=== PATIENT | female | born 1950 | race Caucasian/White ===

== ENCOUNTER 2019-10-11 08:48 | Outpatient (CLI) | payer MEDICARE, SELFPAY ==
--- NOTE | ~2019-10-11 | US_ITS ---
EXAMINATION: US carotid duplex BI DATE: 10/11/2019 09:48 INDICATION: Dizziness and giddiness. TECHNIQUE: Grayscale, color Doppler, and pulsed Doppler images of the cervical carotid arteries were obtained. The degree of vessel stenosis is placed in one of the following categories: normal, <50%, 5 0-69%, >=70% but less than near-occlusion, near-occlusion, or total occlusion. Note that percent sten osis relative to normal distal artery lumen diameter is indirectly measured from velocity measurement s as described by Anthony, et al. Radiology 2003; [id number]:[id number]. COMPARISON: None. FINDINGS: RIGHT: The right common carotid artery (CCA) peak systolic velocity (PSV) is 86 cm/s. The right internal car otid artery (ICA) PSV is 79 cm/s. The right ICA end-diastolic velocity (EDV) is 24 cm/s. The right IC A/CCA PSV ratio is 1.5. Grayscale and color Doppler images yield an estimate of <50% diameter reducti on from plaque in the ICA. There is antegrade flow in the right vertebral artery. LEFT: The left CCA PSV is 81 cm/s. The left ICA PSV is 108 cm/s. The left ICA EDV is 35 cm/s. The left ICA/ CCA PSV ratio is 1.3. Grayscale and color Doppler images yield an estimate of <50% diameter reduction from plaque in the ICA. There is antegrade flow in the left vertebral artery. IMPRESSION: 1. <50% stenosis in the right internal carotid artery. 2. <50% stenosis in the left internal carotid artery. Reviewed, dictated and finalized at location A.
--- NOTE | ~2019-10-11 | MR_ITS ---
EXAMINATION: MR brain/brain stem wo/w con DATE: 10/11/2019 10:14 INDICATION: Dizziness and giddiness. TECHNIQUE: Magnetic resonance imaging (MRI) of the brain and brainstem was performed without and with 12 mL MultiHance intravenous contrast. Sequences included sagittal and axial T1-weighted FSE, axial diffusion-weighted FS EPI, axial T2*-weighted GRE, axial T2-weighted FLAIR Propeller, and axial T2-we ighted Propeller. Postcontrast sequences included axial and coronal T1-weighted FSE. Apparent diffusi on coefficient (ADC) maps were created. COMPARISON: None. FINDINGS: There are scattered areas of nonspecific increased T2-weighted signal intensity in the cere bral white matter, which is within normal limits for the patient's age. There is no intracranial hemo rrhage, acute infarction, or abnormal intracranial mass lesion. The ventricles are normal in size. Th ere is mild mucosal thickening in the ethmoid sinuses. The orbits are normal. There is a trace right mastoid effusion. IMPRESSION: 1. Normal aging brain. Reviewed, dictated and finalized at location A. IMPRESSION: 1. Normal aging brain.
[2019-10-11 09:43] LABS: Estimated Glomerular Filt Rate > 60
== END 2019-10-11 08:49 | disposition home or self-care (01) ==
PROVIDERS: PCP Family Medicine; Visit Provider Family Medicine
DX: E78.5 Hyperlipidemia, unspecified (principal); H53.9 Unspecified visual disturbance; I10 Essential (primary) hypertension; R42 Dizziness and giddiness; I65.23 Occlusion and stenosis of bilateral carotid arteries
CPT/HCPCS: 36415; 70553; 93880; A9577

== ENCOUNTER 2019-11-15 07:41 | Outpatient (CLI) | payer MEDICARE, SELFPAY ==
--- NOTE | ~2019-11-15 | XR_ITS ---
XR shoulder RT min 2V DATE: 11/15/2019 08:07 INDICATION: Chronic right shoulder pain TECHNIQUE: 2 views COMPARISON: None FINDINGS: Osteopenia. No fracture or dislocation, periosteal reaction or bone destruction or abnormal soft tissue calcification. Normal alignment at the acromioclavicular and glenohumeral joints. There is mild degenerative spurring at the acromioclavicular joint. IMPRESSION: Mild degenerative change at the acromioclavicular joint Osteopenia. Reviewed, dictated and finalized at location A.
== END 2019-11-15 07:42 | disposition home or self-care (01) ==
PROVIDERS: PCP Family Medicine
DX: M19.011 Primary osteoarthritis, right shoulder (principal); M85.811 Other specified disorders of bone density and structure, right shoulder
CPT/HCPCS: 73030

== ENCOUNTER 2019-12-15 15:34 | Outpatient (CLI) | payer MEDICARE, SELFPAY ==
--- NOTE | ~2019-12-15 | MR_ITS ---
EXAMINATION: MR lumbar spine wo/w con EXAM DATE: 12/15/2019 17:10 INDICATION: Dorsalgia. Low back pain. TECHNIQUE: Multi-sequential, multiplanar MR images of the lumbar spine were obtained without contrast . Sagittal T1, T2, T2 fat saturation images. Axial T2 weighted images. Axial T1 weighted sequence. Patient was then injected with 12 mL Multihance intravenous contrast and reimaged. Postcontrast axi al and sagittal T1-weighted fat saturation sequences were obtained. Notation was made that the IV inf iltrated during the injection. Only minimal contrast was present on postcontrast sequences. Patient d eclined repeat IV placement, injection. Comparison is made to prior examination from 10/16/2018. FINDINGS: There is moderate loss of the disc height at L4-5, mild disc disease at L3-4. Small Schmorl 's nodes at L1-2. The conus medullaris terminates at the T12/L1 level and has normal signal intensity and morphology. There are no suspicious marrow signal abnormalities. The vertebral bodies are align ed in the AP dimension. Paraspinal soft tissue is unremarkable. Postcontrast sequences are limited bu t axial postcontrast images does demonstrate some contrast in the kidneys, renal collecting system, n o evidence of epidural abscess or discitis. Level by level evaluation: Axial T2-weighted sequence limited from patient motion. T12-L1: Disc does not extend beyond the endplate margin. Facet arthropathy: None. Neural foraminal stenosis: No stenosis. Central canal stenosis: No stenosis. L1-L2: There is a minimal diffuse disc bulge. Facet arthropathy: Mild. Neural foraminal stenosis: No stenosis. Central canal stenosis: No stenosis. L2-L3: There is a mild diffuse disc bulge. Facet arthropathy: Mild to moderate. Neural foraminal stenosis: No stenosis. Central canal stenosis: No stenosis. L3-L4: There is a mild to moderate diffuse disc bulge. Facet arthropathy: Mild to moderate. Neural foraminal stenosis: Mild bilateral. Central canal stenosis: Mild. L4-L5: There is a moderate diffuse disc bulge. Facet arthropathy: Mild to moderate. Neural foraminal stenosis: Moderate bilateral. Central canal stenosis: Mild to moderate. L5-S1: Disc does not extend beyond the endplate margin. Facet arthropathy: Mild to moderate. Neural foraminal stenosis: No stenosis. Central canal stenosis: No stenosis. Difficult to appreciate any significant interval change compared to prior study 2019. IMPRESSION: 1. Some limitations from motion and limited postcontrast sequences. 2. L4-5 moderate loss of disc height and bilateral neural foraminal stenosis. 3. Lesser spondylosis at other levels. Reviewed, dictated and finalized at location A.
[2019-12-15 16:17] LABS: Estimated Glomerular Filt Rate > 60
== END 2019-12-15 15:35 | disposition home or self-care (01) ==
LOC: ANHIMG 15:36
PROVIDERS: PCP Family Medicine; Visit Provider Family Medicine
DX: M54.9 Dorsalgia, unspecified (principal)
CPT/HCPCS: 72158; A9577

== ENCOUNTER → 2020-07-05 08:36 | Outpatient (CLI) | payer MEDICARE, SELFPAY ==
--- NOTE | ~2020-07-05 | XR_ITS ---
EXAMINATION: XR lumbar spine 2-3V DATE: 07/05/2020 09:06 INDICATION: Low back pain TECHNIQUE: Anteroposterior and lateral views of the lumbar spine, and cone-down lateral view of the l umbosacral junction were obtained. COMPARISON: MRI, 12/15/2019 FINDINGS: There is no fracture. Bone alignment is normal. There is unchanged moderate loss of interve rtebral disc space height at L4-5. The vertebral body heights are normal. Small degenerative osteophy ji project from the anterior endplates of multiple vertebral bodies. There is mild to moderate facet osteoarthritis of the lower lumbar spine. IMPRESSION: 1. Mild lumbar spondylosis without acute findings or significant interval change. Reviewed, dictated and finalized at location A. IMPRESSION: 1. Mild lumbar spondylosis without acute findings or significant interval ortega mireya
--- NOTE | ~2020-07-05 | XR_ITS ---
XR hip RT min 3V w AP pelvis 07/05/2020 09:06 Indication: Right hip pain Procedure: 3 views right hip Comparison: No prior studies for comparison. Findings: No fracture, subluxation or dislocation. No significant joint space narrowing. Pelvic rings are intact. Sacral foramen are symmetric. No significant soft tissue abnormality. No foreign bodies. Impression: 1: No significant bone or joint abnormality. Reviewed, dictated and finalized at location B. Impression: 1: No significant bone or joint abnormality.
== END ==
PROVIDERS: PCP Family Medicine; Visit Provider Physician Assistant
DX: M47.816 Spondylosis without myelopathy or radiculopathy, lumbar region (principal); M25.551 Pain in right hip
CPT/HCPCS: 72100; 73502

== ENCOUNTER 2020-10-08 08:27 | Emergency (ER) | payer MEDICARE, SELFPAY ==
[2020-10-08] VITALS (8 sets, daily range): BP systolic 109–143; BP diastolic 81–90; PULSE 56–65; RESP 12–18; TEMP 36.7; O2SAT 96–100
--- NOTE | ~2020-10-08 | XR_ITS ---
EXAMINATION: XR femur RT min 2V INDICATION: Right thigh pain TECHNIQUE: Two views of the right femur are obtained on five radiographs. COMPARISON: None available FINDINGS: Bone alignment is normal. There is no fracture. Calcified atherosclerosis is noted. There i s mild osteoarthritis of the knee. IMPRESSION: 1. No acute osseous abnormality. Reviewed, dictated and finalized at location A.
--- NOTE | ~2020-10-08 | XR_ITS ---
EXAMINATION: XR pelvis 1-2V INDICATION: Pelvic pain TECHNIQUE: AP view of the pelvis is obtained. COMPARISON: 07/05/2020 FINDINGS: Bone alignment is normal. There is no fracture. Mild lumbar spondylosis is noted. The soft tissues are unremarkable. IMPRESSION: 1. No acute osseous abnormality. Reviewed, dictated and finalized at location A.
--- NOTE | 2020-10-08 08:45 | ED.FALL ---
HPI - Fall General Chief Complaint: Fall Stated Complaint: fall Time Seen by Provider: 10/08/20 08:42 Source: patient Mode of arrival: ambulatory Limitations: no limitations History of Present Illness HPI Narrative: Patient is a 70-year-old female complaining of right thigh pain, 10 out of 10, aching, worse with palpation movement, started prior to arrival after she fell down 3 flights of stairs while sweeping. Patient denies any head, neck, back, chest, abdomen, pelvis or any other extremity pain/injury. Denies any LOC. Related Data Allergies Allergy/AdvReac Type Severity Reaction Status Date / Time erythromycin base Allergy Mild NAUSEA Verified 07/03/20 15:36 lisinopril Allergy Unknown cough Verified 07/03/20 15:36 trazodone Allergy Unknown nasal Verified 07/03/20 15:36 stuffiness, Review of Systems Review of Systems: All systems reviewed & are unremarkable except as noted in HPI and below Constitutional: Constitutional: Denies body ache(s), Denies chills, Denies excessive sweating, Denies fatigue, Denies fever(s), Denies headache(s), Denies lethargy, Denies malaise, Denies weakness and Denies weight loss Eyes: Eyes: Denies blurry vision, Denies change in vision and Denies loss of vision ENT: Denies dizziness, Denies ear discharge, Denies headache(s), Denies lip swelling, Denies epistaxis, Denies nasal congestion, Denies neck pain, Denies throat swelling and Denies tongue swelling Cardiovascular: Cardiovascular: Denies chest pain, Denies chest pain at rest, Denies chest pain with activity, Denies diaphoresis, Denies rapid heart rate, Denies edema, Denies irregular heart rhythm, Denies lightheadedness, Denies palpitations, Denies dyspnea and Denies dyspnea on exertion Respiratory: Respiratory: Denies chest congestion, Denies cough, Denies hemoptysis, Denies dyspnea and Denies dyspnea on exertion Gastrointestinal: Gastrointestinal: Denies abdominal pain, Denies melena, Denies hematochezia, Denies diarrhea, Denies nausea, Denies vomiting and Denies hematemesis Musculoskeletal: Musculoskeletal: Denies deformity, Denies joint swelling, Denies neck pain and Denies numbness Neurologic: Denies Abnormal speech present, Denies abnormal gait, Denies confusion, Denies dizziness, Denies headache(s), Denies focal weakness, Denies loss of vision, Denies numbness, Denies Other visual disturbances, Denies Sensory deficit (Neuro) and Denies weakness Psychiatric: Psychiatric: Denies confusion, Denies depression, Denies auditory hallucinations, Denies homicidal ideation and Denies suicidal ideation Endocrine: Endocrine: Denies cold intolerance, Denies excessive sweating, Denies fatigue, Denies heat intolerance and Denies palpitations Hematologic/Lymphatic: Hematologic/Lymphatic: Denies easy bleeding and Denies easy bruising Allergic/Immunologic: Allergic/Immunologic: Denies lip swelling, Denies throat swelling and Denies tongue swelling PMFSH Family History Family History Mother Family history of anemia Family history of chronic obstructive pulmonary disease Father Cerebrovascular accident Family history of chronic obstructive pulmonary disease Social History Social History Smoking status: Current every day smoker Alcohol intake: current Exam Const: General: cooperative, healthy appearing, comfortable, no acute distress, well developed, alert and awake; No confusion Orientation/consciousness: oriented to person, oriented to place, oriented to time, patient oriented x3 and No confusion Limitations: no limitations HENMT: Head: normal to inspection, normocephalic and atraumatic Ears: hearing grossly normal bilaterally, TM normal on the right and TM normal on the left General nose exam: Normal external nose present, Normal nares present and No nasal discharge present Face and sinus: normal facial
[2020-10-08] MEDS: KETOROLAC 30 MG/ML VIAL (*BKC) IV PUSH (09:22)
[2020-10-08] MEDS: diazePAM (*CRX) 5 MG TABLET PO (09:23)
[2020-10-08] MEDS: HYDROmorphone HCL INJ (*CRX) 1 MG/ML SYR 0.5 MG IV PUSH (09:23)
[2020-10-08] MEDS: ONDANSETRON INJ 4 MG/2 ML VIAL IV PUSH (09:23)
== END 2020-10-08 09:57 | disposition home or self-care (01) ==
PROVIDERS: Emergency Provider Emergency Medicine; PCP Family Medicine
DX: S70.01XA Contusion of right hip, initial encounter (principal); W10.9XXA Fall (on) (from) unspecified stairs and steps, initial encounter; F17.210 Nicotine dependence, cigarettes, uncomplicated
CPT/HCPCS: 72170; 73552; 96374; 96375; 99284; A9270; J1170; J1885; J2405

== ENCOUNTER → 2020-11-03 08:03 | Outpatient (CLI) | payer MEDICARE, SELFPAY ==
[2020-11-03 18:53] LABS: SARS-CoV-2 RNA PCR Negative
== END ==
PROVIDERS: PCP Family Medicine; Visit Provider Physician Assistant
DX: R68.89 Other general symptoms and signs (principal); Z20.822 Contact with and (suspected) exposure to COVID-19
CPT/HCPCS: C9803; U0003; U0005

== ENCOUNTER → 2021-02-26 07:03 | Outpatient (CLI) | payer MEDICARE, SELFPAY ==
--- NOTE | ~2021-02-26 | MR_ITS ---
EXAMINATION: MR shoulder RT wo con DATE: 02/26/2021 08:30 INDICATION: Unspecified rotator cuff tear or rupture of shoulder. Right shoulder pain. TECHNIQUE: Magnetic resonance imaging (MRI) of the right shoulder was performed without intravenous c ontrast. Sequences included axial PD-weighted FS FSE, coronal oblique PD-weighted FS FSE and T2-weigh juan jose FS FSE, and sagittal oblique T2-weighted FS FSE and T1-weighted FSE. COMPARISON: Right shoulder radiographs 11/15/2019 FINDINGS: Coracoacromial arch: There are changes of acromioplasty and likely distal clavicle resection. There is full-thickness cart ilage loss of the acromion and distal clavicle. There is an acromioclavicular joint effusion. There i s severe subacromial/subdeltoid bursitis. Rotator cuff: There are surgical changes of the rotator cuff. There is bone marrow edema in greater tuberosity. The re is severe supraspinatus and infraspinatus tendinopathy. There is a full-thickness tear of supraspi natus tendon measuring 7 mm anterior to posterior by 20 mm proximal to distal. Teres minor tendon is normal. There is moderate subscapularis tendinopathy. There is no asymmetric fatty atrophy of the rot ator cuff muscle bellies. Biceps tendon and glenoid labrum: There is a complete tear of proximal biceps tendon with torn tendon in the bicipital groove. There is degenerative tearing of the glenoid labrum (SLAP tear). Fluid: There is a large glenohumeral joint effusion. Bones/cartilage: There is cartilage surface irregularity of glenoid. Humeral cartilage is normal. IMPRESSION: 1. Severe rotator cuff tendinopathy and full-thickness rotator cuff tear. Surgical changes of the rot ator cuff. 2. Mild glenoid chondrosis. 3. Complete tear of proximal biceps tendon. 4. Large glenohumeral joint effusion and severe subacromial/subdeltoid bursitis. Reviewed, dictated and finalized at location B. UL[employer]WYER [employer]ONE IMPRESSION: 1. Severe rotator cuff tendinopathy and full-thickness rotator cuff tear. Surgi tee changes of the rotator cuff. 2. Mild glenoid chondrosis. 3. Complete tear of proximal biceps tendon. 4. Large glenohumeral joint effusion and severe subacromial/subdeltoid bursitis .
== END ==
PROVIDERS: PCP Family Medicine; Visit Provider Specialist
DX: M75.102 Unspecified rotator cuff tear or rupture of left shoulder, not specified as traumatic (principal); S46.211D Strain of muscle, fascia and tendon of other parts of biceps, right arm, subsequent encounter; X58.XXXD Exposure to other specified factors, subsequent encounter; M25.411 Effusion, right shoulder; M75.51 Bursitis of right shoulder
CPT/HCPCS: 73221

== ENCOUNTER → 2021-02-26 07:05 | Outpatient (CLI) | payer MEDICARE, SELFPAY ==
--- NOTE | ~2021-02-26 | CT_ITS ---
EXAMINATION:CT lung screening DATE: 02/26/2021 07:36 INDICATION: Personal history of nicotine dependence. Smoker who quit 10 years ago with 35 pack year h istory. TECHNIQUE: Computed tomography (CT) of the chest was performed without intravenous contrast. Automate d exposure control and iterative reconstruction technique were employed. The dose-length product (DLP ) was 62.69 mGy-cm. COMPARISON: Chest CT 12/19/2014 FINDINGS: There is mild emphysema. There is mild atelectasis bilaterally. No pleural effusion. The he art size is normal. There are coronary artery calcifications. No pericardial effusion. There are bila teral breast implants. There is mild thoracic spondylosis. IMPRESSION: 1. Lung-RADS category 1: Negative. Continue annual screening with noncontrast low-dose chest CT in 12 months. Reviewed, dictated and finalized at location B. 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 Lung-RADS category 1: Negative. Continue annual screening with noncontrast l ow-dose chest CT in 12 months.
== END ==
PROVIDERS: PCP Family Medicine; Visit Provider Family Medicine
DX: Z12.2 Encounter for screening for malignant neoplasm of respiratory organs (principal); Z87.891 Personal history of nicotine dependence
CPT/HCPCS: 71271

== ENCOUNTER → 2021-12-19 06:52 | Outpatient (CLI) | payer MEDICARE, SELFPAY ==
--- NOTE | ~2021-12-19 | MR_ITS ---
EXAMINATION: MR lumbar spine wo con DATE: 12/19/2021 07:26 INDICATION: Low back pain. TECHNIQUE: Magnetic resonance imaging (MRI) of the lumbar spine was performed without intravenous con trast. Sequences included sagittal T2-weighted FSE, sagittal T2-weighted FS FSE, sagittal T1-weighted FSE, and axial T2-weighted FSE. COMPARISON: Lumbar spine MRI 12/15/2019 FINDINGS: Bone alignment is normal. Vertebral body heights are normal. There is severely decreased di sc height at L4-L5 with endplate remodeling. The distal spinal cord signal intensity is normal. The c onus medullaris is at L1. The following disc levels are specifically discussed: L1-L2: The disc does not extend beyond the endplate margin. There is mild bilateral facet joint osteo arthritis. There is no neural foraminal stenosis. There is no central canal stenosis. L2-L3: The disc is bulging. There is severe right and mild left facet joint osteoarthritis. There is mild bilateral neural foraminal stenosis. There is mild central canal stenosis. L3-L4: The disc is bulging and has an annular fissure. There is mild bilateral facet joint osteoarthr itis. There is mild bilateral neural foraminal stenosis. There is mild central canal stenosis. L4-L5: The disc is bulging and has an annular fissure. There is mild bilateral facet joint osteoarthr itis. There is moderate bilateral neural foraminal stenosis. There is mild central canal stenosis. L5-S1: The disc does not extend beyond the endplate margin. There is severe right and moderate left f acet joint osteoarthritis. There is mild right neural foraminal stenosis. There is no central canal s tenosis. IMPRESSION: 1. Severe lumbar spondylosis, stable from 12/15/2019. Reviewed, dictated and finalized at location A.
== END ==
PROVIDERS: PCP Family Medicine; Visit Provider Nurse Practitioner Family
DX: M47.896 Other spondylosis, lumbar region (principal)
CPT/HCPCS: 72148

== ENCOUNTER 2022-07-13 13:45 | Emergency (ER) | payer MEDICARE, SELFPAY ==
--- NOTE | ~2022-07-13 | CT_ITS ---
EXAMINATION: CT lumbar spine wo con DATE: 07/13/2022 15:10 INDICATION: LBP, BLE shooting pains . TECHNIQUE: Computed tomography (CT) of the lumbar spine was performed without intravenous contrast. A utomated exposure control and iterative reconstruction technique were employed. The dose-length produ ct was 324.15 mGy-cm. COMPARISON: MR lumbar spine 12/19/2021, x-ray lumbar spine 07/05/2020. FINDINGS: Colonic diverticuli. Atherosclerotic calcifications. Partially visualized distended urinary bladder. 5 nonrib-bearing lumbar-type vertebral bodies. Pedicles intact. Normal vertebral body align ment. Vertebral body heights preserved. Multilevel lumbar degenerative disc disease, with severe narr owing and vacuum phenomenon at L4-5. Mild lumbar facet sclerosis and hypertrophy. No severe central c anal or neural foraminal narrowing. Mild central canal stenosis at L3-4 and L4-5. Mild neural foramin al narrowing bilaterally at L4-5 and on the right at L5-S1. Old right L2 and L3 transverse process fr actures. IMPRESSION: No acute fracture or traumatic malalignment in the lumbar spine. Severe degenerative disc disease at L4-5. Dilated urinary bladder, correlate for findings of urinary retention. Reviewed, dictated and finalized at location K. IMPRESSION: No acute fracture or traumatic malalignment in the lumbar spine. Severe degener ative disc disease at L4-5. Dilated urinary bladder, correlate for findings of urinary retention.
[2022-07-13 13:49] VITALS: PULSE 94; RESP 18; TEMP 36.7; O2SAT 98
--- NOTE | 2022-07-13 14:19 | ED.BACK ---
HPI - Back Pain/Injury General Chief Complaint: Back Pain/Injury <John Munson PA-C - Last Filed: 07/13/22 19:32> Stated Complaint: back pain after bending over to pick something up <John Munson PA-C - Last Filed: 07/13/22 19:32> Time Seen by Provider: 07/13/22 13:55 <BROOKE Alberts Last Filed: 07/13/22 19:32> Source: patient <BROOKE Alberts Last Filed: 07/13/22 19:32> Mode of arrival: ambulatory <BROOKE Alberts Last Filed: 07/13/22 19:32> Limitations: no limitations <John Munson PA-C - Last Filed: 07/13/22 19:32> History of Present Illness HPI Narrative: This is a 72-year-old female with acute on chronic back pain times today. 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 Patient states she was curled up in a ball due to the pain. Denies a fall. Denies any specific trauma to the back. Denies audible pops. Denies fevers or IV drug use. States she has known chronic degenerative problems in the low back. Reports 9 out of 10 pain. Denies saddle anesthesia, urinary retention, bowel incontinence. Denies further site of pain or injury. <John Munson PA-C - Last Filed: 07/13/22 19:32> Related Data Allergies/Adverse Reactions: Allergies Allergy/AdvReac Type Severity Reaction Status Date / Time lisinopril Allergy Unknown cough Verified 02/04/22 09:54 erythromycin base AdvReac Mild NAUSEA Verified 07/13/22 14:20 trazodone AdvReac Unknown nasal Verified 07/13/22 14:20 stuffiness, <BROOKE Alberts Last Filed: 07/13/22 19:32> Review of Systems Review of Systems: CONSTITUTIONAL: Denies fever, chills, or sweats. EYES: Denies visual changes, redness, or discharge. ENT: Denies rhinorrhea, congestion, sore throat, or otalgia. CARDIOVASCULAR: Denies chest pain, palpitations, or edema. RESPIRATORY: Denies cough or dyspnea. GASTROINTESTINAL: Denies abdominal pain, nausea, vomiting, or diarrhea. GENITOURINARY: Denies dysuria or hematuria. SKIN: Denies rash or itching. MUSCULOSKELETAL: Endorses low back pain. Denies other back pain, joint pain, or myalgia. NEUROLOGIC: Denies headache, numbness, dizziness, or weakness. PSYCHIATRIC: Denies anxiety or depression. <John Munson PA-C - Last Filed: 07/13/22 19:32> PMFSH Past Medical History Medical History: Medical History Accelerated hypertension Dizziness of unknown etiology Tired Visual changes <John Munson PA-C - Last Filed: 07/13/22 19:32> Family History Family History: Family History Mother Family history of anemia Family history of chronic obstructive pulmonary disease Father Cerebrovascular accident Family history of chronic obstructive pulmonary disease <John Munson PA-C - Last Filed: 07/13/22 19:32> Social History Social History: Social History Smoking status: Former smoker Alcohol intake: current <John Munson PA-C - Last Filed: 07/13/22 19:32> Exam Narrative: GENERAL: Well-appearing, well-nourished, and in no acute distress. HEAD: Normocephalic, atraumatic. EYES: PERRLA and EOMI. ENT: Nares clear, no rhinorrhea or epistaxis. Mucous membranes moist. Oropharynx without tonsillar hypertrophy exudate or other lesions. NECK: Supple. No adenopathy or masses. CHEST: No respiratory distress. Clear to auscultation. No wheezes rales or rhonchi HEART: Regular rate and rhythm. No murmur heard. Normal peripheral pulses. ABDOMEN: Soft, nontender, nondistended, normal active bowel sounds. EXTREMITIES: Midline lumbar spinal tenderness. Mild paraspinal lumbar tenderness bilaterally. No bony deformities or step-offs. The spine is otherwise without tenderness. MSK exam is otherwise
[2022-07-13] MEDS: predniSONE 20 MG TABLET 60 MG PO (14:39)
[2022-07-13] MEDS: ORPHENADRINE CITRATE 100 MG TABLET.ER PO (14:39)
[2022-07-13] MEDS: HYDROcodone/acetaminophen (*CRX) 7.5-325 MG TABLET 1 TAB PO (14:39)
[2022-07-13] MEDS: KETOROLAC (*BKC) 60 MG/2 ML VIAL IM (16:07)
--- NOTE | 2022-07-13 16:13 | PC.NURSE ---
Patient asked for urine specimen. Pt reports, I'm working on it .
--- NOTE | 2022-07-13 16:14 | PC.NURSE ---
Patient standing at bedside. Patient refusing to sit in stretcher.
--- NOTE | 2022-07-13 16:50 | PC.NURSE ---
Patient during discharge reports she is insulted that she is in so much pain because of her mechanism of injury, which was picking up her purse.
[2022-07-13 17:03] VITALS: BP 164/81; PULSE 70; RESP 16; O2SAT 100
== END 2022-07-13 17:05 | disposition home or self-care (01) ==
PROVIDERS: Emergency Provider Physician Assistant; PCP Emergency Medicine
DX: M47.816 Spondylosis without myelopathy or radiculopathy, lumbar region (principal); I10 Essential (primary) hypertension; G89.29 Other chronic pain
CPT/HCPCS: 72131; 96372; 99284; A9270; J1885; J7512

== ENCOUNTER → 2022-09-05 15:07 | Outpatient (CLI) | payer MEDICARE, SELFPAY ==
--- NOTE | ~2022-09-05 | XR_ITS ---
EXAMINATION: XR knee RT 3V DATE: 09/05/2022 15:23 INDICATION: Right knee pain. Fall. TECHNIQUE: 3 views of right knee were obtained. COMPARISON: Right femur radiographs 10/08/2020 FINDINGS: Bone alignment is normal. No fracture. There is mild tricompartmental osteoarthritis charac terized by tiny osteophytes. No joint space narrowing. No knee joint effusion. IMPRESSION: 1. Mild right knee osteoarthritis. Reviewed, dictated and finalized at location A.
--- NOTE | ~2022-09-05 | XR_ITS ---
EXAMINATION: XR hip RT min 3V w AP pelvis DATE: 09/05/2022 15:23 INDICATION: Right hip pain. Fall. TECHNIQUE: An anteroposterior view of the pelvis and 2 views of right hip were obtained. COMPARISON: Pelvis radiograph 10/08/2020 FINDINGS: Bone alignment is normal. No fracture. There is moderate lumbar spondylosis. There is mild osteoarthritis of the hips. IMPRESSION: 1. Mild osteoarthritis of the hips. Reviewed, dictated and finalized at location A.
== END ==
PROVIDERS: PCP Emergency Medicine; Visit Provider Physician Assistant
DX: M16.0 Bilateral primary osteoarthritis of hip (principal); M17.11 Unilateral primary osteoarthritis, right knee
CPT/HCPCS: 73502; 73562

== ENCOUNTER 2022-09-16 08:26 | Outpatient (CLI) | payer MEDICARE, SELFPAY ==
[2022-09-16 14:25] LABS: Basophils Percent Auto 0.6 % (0.2-1.2); Eosinophils Absolute Auto 0.1 K/mm3 (0-0.3); Eosinophils Percent Auto 1.6 % (0-4.4); Hemoglobin 13.6 g/dL (12.0-15.0); Immature Granulocyte Absolute 0.01 K/mm3 (0.00-0.031); Immature Granulocyte Percent A 0.2 % (0-0.5); Lymphocytes Absolute Auto 2.15 K/mm3 (0.9-3.2); Lymphocytes Percent Auto 34.2 % (18.3-44.2); Mean Corpuscular HGB Conc 31.6 g/dl (32-36); Mean Corpuscular Hemoglobin 30.4 pg (26-34); Mean Corpuscular Volume 96.2 fl (80-100); Mean Platelet Volume 9.5 fl (7.4-10.4); Monocytes Absolute Auto 0.5 K/mm3 (0.1-0.6); Monocytes Percent Auto 8.4 % (2.6-8.5); Neutrophils Absolute Auto 3.5 K/mm3 (1.3-6.7); Platelet Count Result 365 k/mm3 (150-375); Red Blood Count 4.47 M/mm3 (4.2-5.4); Red Cell Distribution Width 13.6 % (11.5-14.5); White Blood Count 6.3 K/mm3 (4.5-10.0)
[2022-09-16 14:43] LABS: Alanine Aminotransferase 26 U/L (6-35); Albumin Level 4.5 g/dL (3.5-5.1); Alkaline Phosphatase 83 U/L (38-126); Anion Gap 4 mmol/L (8-16); Aspartate Amino Transferase 31 U/L (14-36); Bilirubin,Total 0.4 mg/dL (0.2-1.3); Blood Urea Nitrogen 9 mg/dL (7-17); Calcium 9.5 mg/dL (8.4-10.2); Carbon Dioxide 34 mmol/L (22-30); Chloride 100 mmol/L (98-107); Cholesterol 230 mg/dL (0-200); Estimated Glomerular Filt Rate > 60; Glucose 80 mg/dL (65-110); HDL Direct 52 mg/dL; Sodium 138 mmol/L (137-145); Triglycerides 229 mg/dL (<150)
[2022-09-16 14:53] LABS: LDL Cholesterol Direct 126 mg/dL
[2022-09-16 15:08] LABS: Vitamin D 25 Hydroxy 31.6 ng/mL
[2022-09-16 15:22] LABS: Thyroid Stimulating Hormone Reflex 0.958 uIU/mL (0.465-4.68)
[2022-09-16 16:12] LABS: Hemoglobin A1C 5.9 % (<5.7)
== END 2022-09-16 08:27 | disposition home or self-care (01) ==
LOC: ANHGOSHLAB 08:27
PROVIDERS: PCP Emergency Medicine; Visit Provider Nurse Practitioner Family
DX: R79.89 Other specified abnormal findings of blood chemistry (principal); I10 Essential (primary) hypertension; R52 Pain, unspecified; E78.2 Mixed hyperlipidemia; E55.9 Vitamin D deficiency, unspecified; G47.00 Insomnia, unspecified; R06.83 Snoring
CPT/HCPCS: 36415; 80053; 80061; 82306; 83036; 84443; 85025

== ENCOUNTER 2022-09-23 09:24 | Outpatient (CLI) | payer MEDICARE, SELFPAY ==
--- NOTE | 2022-10-13 22:39 | WPDSLEEPSTUD ---
Sleep Study Date of Study: 09/23/22 Ordering Provider: Dewayne Walters MD Interpreting Physician: Kenna Vera MD Sleep Study Type: Split Polysomnogram Height: 1.65 m Weight: 61.235 kg Body Mass Index: 22.4 Neck Circumference (inches): 14.5 [place]: 5 Reason for Sleep Study Snoring, hypersomnia Sleep History Aleksandra Ferrer is a 72-year-old female with history of hypertension and tobacco use who presented for a sleep study to evalute snoring and daytime hypersomnia. She told her primary care provider that her mouth is parched upon waking. She rarely awakens from sleep short of breath. She rarely awakens at night with heartburn, belching or cough.? She constantly snores and she snores loudly enough that others complain. She never has trouble sleeping when she has a cold. She never suddenly wakes up gasping for breath during the night. She never has breathing problems at night observed by others. She occasionally sweats excessively at night. She occasionally notices her heart pounding or beating irregularly during the night. She never falls asleep during the day. She never falls asleep while driving. She never experiences loss of muscle tone with strong emotion. She constantly has trouble during the day because of sleepiness. She never feels paralyzed on waking or falling asleep. She never experiences vivid dreams upon waking or falling asleep. She does not feel afraid of going to sleep. She rarely has nightmares. She occasionally recalls her dreams. She constantly has thoughts racing through her mind. She does not feel sad or depressed. She frequently feels anxiety or worry about things. She rarely notices parts of her body jerk. She rarely kicks during the night. She never feels crawling or aching feelings in her legs. She never feels leg pain at night. She never grinds her teeth during sleep or has morning jaw pain. She occasionally feels bothered by pain during the day. She rarely wakes up feeling stiff in the morning and frequently wakes up feeling sore and achy in the morning. Normal bedtime is around 11:30pm on the weekdays and 11:30pm to 12:30am on the weekends, taking around 20 minutes to fall asleep. She takes Xanax before bed for sleep. She typically gets about 6 hours of sleep per night. Her wake up time is 5:30am on the weekdays and same on the weekends. She hardly ever wakes up during the night. She frequently reads before falling asleep and sometimes watches TV before falling asleep. Habits:? Current tobacco smoker. Drinks about 4 to 5 caffeinated beverages per day. Drinks about 3 to 4 alcoholic drinks per night. No recreational substances. [facility] Past Medical History Medical History (Updated 10/13/22 @ 22:47 by Kenna Vera MD) Accelerated hypertension Dizziness of unknown etiology Hypersomnia Tired Visual changes Family History Family History Mother Family history of anemia Family history of chronic obstructive pulmonary disease Father Cerebrovascular accident Family history of chronic obstructive pulmonary disease Social History Social History Smoking status: Former smoker Alcohol intake: current Lack of Transportation: No Lack of Food: Never True Current Housing: I Have Housing Concerned About Future Housing: No Difficulty Paying Gas/Electric Bills: No Difficulty Paying for Meds: No Currently Unemployed: No Education: Associate Degree Difficulty w/ Childcare or Family Care: No Medications Home Medications Medication Instructions Recorded Confirmed Type ibuprofen 800 mg tablet 800 mg PO TID #270 tabs 01/17/21 09/16/22 Rx cyclobenzaprine 10 mg tablet 10 mg PO TID PRN muscle spasm #30 08/22/21 09/16/22 Rx tabs ondansetron 4 mg disintegrating 4 mg PO Q8H PRN nausea and 02/04/22 09/16/22 Rx tablet vomiting #10 tabs atorvastatin 20 mg
[2022-10-14 11:11] VITALS: BMI 22.4
== END 2022-09-24 06:13 | disposition home or self-care (01) ==
LOC: ANHCSM 09:24
PROVIDERS: PCP Emergency Medicine; Visit Provider Family Medicine
DX: G47.33 Obstructive sleep apnea (adult) (pediatric) (principal); Z87.891 Personal history of nicotine dependence
CPT/HCPCS: 95811

== ENCOUNTER → 2023-01-29 08:46 | Outpatient (CLI) | payer MEDICARE, SELFPAY ==
--- NOTE | ~2023-01-29 | CT_ITS ---
EXAMINATION: CT lung screening DATE: 01/29/2023 08:59 INDICATION: Personal history of nicotine dependence TECHNIQUE: Computed tomography (CT) of the chest was performed without intravenous contrast. The dose -length product was 52.20 mGy-cm. Automated exposure control and iterative reconstruction technique w ere employed. COMPARISON: CT dated 02/26/2021 FINDINGS: No thoracic lymphadenopathy. Mild atherosclerosis. Heart size normal. No significant pleura l or pericardial effusion. Upper abdomen is unremarkable. There are bilateral breast implants. Mild e mphysema. No endobronchial lesions. No pneumothorax. No new pulmonary nodules or masses. No focal air space consolidation. IMPRESSION: 1. Lung-RADS category 1: Negative. Continue annual screening with noncontrast low-dose chest CT in 12 months. Reviewed, dictated and finalized at location B. IMPRESSION: 1. Lung-RADS category 1: Negative. Continue annual screening with noncontrast l ow-dose chest CT in 12 months.
== END ==
PROVIDERS: PCP Physician Assistant; Visit Provider Physician Assistant
DX: Z12.2 Encounter for screening for malignant neoplasm of respiratory organs (principal); Z87.891 Personal history of nicotine dependence
CPT/HCPCS: 71271

== ENCOUNTER 2023-09-15 08:24 | Emergency (ER) | payer MEDICARE, SELFPAY ==
--- NOTE | ~2023-09-15 | CT_ITS ---
CT cervical spine wo con Ordering provider: Eliot Jimenez MD History: . neck injury . Comparison: July 13, 2022 Technique: CT of the cervical spine was performed without contrast. Sagittal and coronal reformatted images were also obtained and reviewed. Radiation reduction technique utilized. FINDINGS: VERTEBRAE: No subluxation or acute fracture. The occipital condyles are intact. Cystic changes seen in the left side on the C5. DISC SPACES: Narrowing of the disc C6-C7. Facet joint disease at the level of C3-C4 and C4-C5. Narrow ing of the left intervertebral foramen at the level of C4-C5. PARASPINOUS SOFT TISSUES: Normal. IMPRESSION: No acute osseous abnormality cervical spine. Reviewed, dictated and finalized at location A.
[2023-09-15 08:28] VITALS: BP 170/95; PULSE 98; RESP 20; TEMP 36.8; O2SAT 97
[2023-09-15] MEDS: SODIUM CHLORIDE 0.9% IV 1,000 ML 999 ML IV CONT (09:38)
[2023-09-15] MEDS: KETOROLAC 15 MG/ML VIAL (*BKC) IV PUSH (09:39)
[2023-09-15] MEDS: diazePAM INJ (*CRX) 10 MG/2 ML SYRINGE 5 MG IV PUSH (09:39)
--- NOTE | 2023-09-15 09:49 | ED.GENADULT ---
HPI - General Adult General Chief complaint: Neck Pain/Injury Stated complaint: neck pain Time Seen by Provider: 09/15/23 08:52 History of Present Illness HPI narrative: Patient is a 73-year-old female who presents ER with neck pain. Worsening over last 2 weeks but markedly worsening in last 24 hours. Able to perform range of motion but has pain mainly on the left side that radiates into her face and head. She has no radicular symptoms going down her arms. She has been working in her yd over last couple weeks moving a lot of [employer] in [employer]. No known trauma. Unable to get into her PCP. She has been taking anti-inflammatories as well as Flexeril without improvement. Related Data Allergies Allergy/AdvReac Type Severity Reaction Status Date / Time lisinopril Allergy Unknown cough Verified 09/15/23 08:33 erythromycin base AdvReac Mild NAUSEA Verified 09/15/23 08:33 Review of Systems Review of Systems: All systems reviewed & are unremarkable except as noted in HPI and below Constitutional: Constitutional: Reports no additional constitutional complaints ENT: Reports system reviewed and no additional complaints, except as documented Musculoskeletal: Musculoskeletal: Denies back pain, Denies arthralgias and Denies joint swelling Comments: Neck pain Neurologic: Reports system reviewed and no additional complaints, except as documented [facility] Past Medical History Medical History Accelerated hypertension Dizziness of unknown etiology Hypersomnia Tired Visual changes Family History Family History Mother Family history of anemia Family history of chronic obstructive pulmonary disease Father Cerebrovascular accident Family history of chronic obstructive pulmonary disease Social History Social History (Updated 08/01/23 @ 09:01 by Hilary Irwin MA) Smoking packs per day: 0.25 Smoking cigarettes per day: 5.0 Years smoked: 39 Smoking pack-years: 9.75 Smoking status: Current every day smoker Alcohol intake: current Drinks per week: 3 Substance use: current Substance use type: marijuana Last use: gummy occasionally Do You Feel Safe in your Home?: Yes Lack of Transportation: No Lack of Food: Never True Current Housing: I Have Housing Concerned About Future Housing: No Difficulty Paying Gas/Electric Bills: No Difficulty Paying for Meds: No Currently Unemployed: No Education: Associate Degree Difficulty w/ Childcare or Family Care: No Exam Narrative: GENERAL: Well-appearing, well-nourished, and in no acute distress. HEAD: Normocephalic, atraumatic. ENT: Mucous membranes moist. NECK: Supple. tender palpation left paraspinal muscles as well as the mid cervical midline area. No step-offs. No rash or bruising. CHEST: Clear to auscultation. No respiratory distress. HEART: Regular rate and rhythm. Normal peripheral pulses. EXTREMITIES: Normal range of motion. No edema. NEURO: Alert and oriented x3. PSYCH: Normal mood and affect. Course Course Emergency Course: Pain improving with Toradol and Valium. Discussed imaging results as well as outpatient treatment plan and patient verbalized understanding. Vital Signs Vital signs: Vital Signs Temperature 98.3 F 09/15/23 08:28 Pulse Rate 98 09/15/23 08:28 Respiratory Rate 20 09/15/23 08:28 Blood Pressure 170/95 H 09/15/23 08:28 Pulse Oximetry 97 09/15/23 08:28 Oxygen Delivery Room Air 09/15/23 08:28 Temperature 98.3 F 09/15/23 08:28 Pulse Rate 98 09/15/23 08:28 Respiratory Rate 20 09/15/23 08:28 Blood Pressure 170/95 H 09/15/23 08:28 Pulse Oximetry 97 09/15/23 08:28 Oxygen Delivery Room Air 09/15/23 08:28 Medical Decision Making Vital Signs Vital Signs: Vital Signs Temperature 98.3 F 09/15/23
[2023-09-15 11:06] VITALS: BP 157/89; PULSE 69; RESP 20; O2SAT 100
== END 2023-09-15 11:07 | disposition home or self-care (01) ==
PROVIDERS: Emergency Provider Emergency Medicine; PCP Emergency Medicine
DX: S16.1XXA Strain of muscle, fascia and tendon at neck level, initial encounter (principal); I10 Essential (primary) hypertension; F17.210 Nicotine dependence, cigarettes, uncomplicated; Z79.899 Other long term (current) drug therapy; X50.0XXA Overexertion from strenuous movement or load, initial encounter; Y93.H2 Activity, gardening and landscaping
CPT/HCPCS: 72125; 96361; 96374; 96375; 99284; J1885; J3360; J7030

== ENCOUNTER 2023-09-18 14:52 | Outpatient (CLI) | payer MEDICARE, SELFPAY ==
[2023-09-18 18:45] LABS: Basophils Percent Auto 0.3 % (0.2-1.2); Eosinophils Percent Auto 0.1 % (0-4.4); Hemoglobin 12.6 g/dL (12.0-15.0); Immature Granulocyte Absolute 0.04 K/mm3 (0.00-0.031); Immature Granulocyte Percent A 0.3 % (0-0.5); Lymphocytes Absolute Auto 3.19 K/mm3 (0.9-3.2); Mean Corpuscular HGB Conc 32.3 g/dl (32-36); Mean Corpuscular Hemoglobin 30.3 pg (26-34); Mean Corpuscular Volume 93.8 fl (80-100); Mean Platelet Volume 9.3 fl (7.4-10.4); Monocytes Absolute Auto 0.7 K/mm3 (0.1-0.6); Monocytes Percent Auto 6.1 % (2.6-8.5); Neutrophils Absolute Auto 7.8 K/mm3 (1.3-6.7); Neutrophils Percent Auto 66.2 % (45.5-73.1); Platelet Count Result 429 k/mm3 (150-375); Red Blood Count 4.16 M/mm3 (4.2-5.4); Red Cell Distribution Width 13.5 % (11.5-14.5); White Blood Count 11.8 K/mm3 (4.5-10.0)
[2023-09-18 19:09] LABS: Alanine Aminotransferase 22 U/L (6-35); Albumin Level 4.6 g/dL (3.5-5.1); Alkaline Phosphatase 74 U/L (38-126); Anion Gap 5 mmol/L (4-12); Aspartate Amino Transferase 26 U/L (14-36); Bilirubin,Total 0.4 mg/dL (0.2-1.3); Blood Urea Nitrogen 12 mg/dL (7-17); Carbon Dioxide 33 mmol/L (22-30); Chloride 92 mmol/L (98-107); Cholesterol 195 mg/dL (0-200); Estimated Glomerular Filt Rate > 60; Glucose 98 mg/dL (65-110); HDL Direct 65 mg/dL; Potassium 4.1 mmol/L (3.4-5.0); Sodium 130 mmol/L (137-145); Triglycerides 176 mg/dL (<150)
[2023-09-18 19:20] LABS: LDL Cholesterol Direct 102 mg/dL
== END 2023-09-18 14:53 | disposition home or self-care (01) ==
LOC: ANHGOSHLAB 14:53
PROVIDERS: PCP Emergency Medicine; Visit Provider Family Medicine
DX: I10 Essential (primary) hypertension (principal)
CPT/HCPCS: 36415; 80053; 80061; 84443; 85025

== ENCOUNTER 2023-11-19 04:20 | Emergency (ER) | payer MEDICARE, SELFPAY ==
--- NOTE | ~2023-11-19 | CT_ITS ---
EXAMINATION: CT abdomen pelvis wo con DATE: 11/19/2023 05:56 INDICATION: Left flank pain. TECHNIQUE: Computed tomography (CT) of the abdomen and pelvis was performed without intravenous contr ast. Automated exposure control and iterative reconstruction technique were employed. The dose-length product was 252.00 mGy-cm. COMPARISON: CT abdomen and pelvis 12/19/2014 FINDINGS: The visualized portions of lung bases demonstrate mild atelectasis. No pleural effusion. Th e heart size is normal. No pericardial effusion. There are coronary artery calcifications. Breast imp lants are noted. The liver, gallbladder, spleen, pancreas, adrenal glands, and right kidney are juanpablo l. There is a 14 mm cyst in left kidney. A 3 mm calcification at the hilum of left kidney is likely v ascular. There is diverticulosis of the colon without evidence of diverticulitis. The appendix is nor mal. There are no dilated loops of bowel. There are no pathologically enlarged lymph nodes. There is no free intraperitoneal fluid. There is severe lumbar spondylosis. IMPRESSION: 1. No specific etiology for the patient's symptoms. Reviewed, dictated and finalized at location A.
--- NOTE | ~2023-11-19 | XR_ITS ---
EXAMINATION: XR chest 2V DATE: 11/19/2023 06:03 INDICATION: Left flank pain. TECHNIQUE: Frontal and lateral views of the chest were obtained. COMPARISON: Chest 2 views 11/29/2009 FINDINGS: There is no pneumonia, pleural effusion, or pneumothorax. The heart size is normal. Breast implants are noted. IMPRESSION: 1. No acute cardiopulmonary disease. Reviewed, dictated and finalized at location A.
--- NOTE | ~2023-11-19 | CT_ITS ---
EXAMINATION: CT thoracic lumbar wo con DATE: 11/19/2023 05:57 INDICATION: Degenerative disc disease. Left leg pain. TECHNIQUE: Computed tomography (CT) of the thoracic and lumbar spine was performed without intravenou s contrast. Automated exposure control and iterative reconstruction technique were employed. The dose -length product was 518.99 mGy-cm. COMPARISON: Chest CT 01/29/2023, CT lumbar spine 07/13/2022 FINDINGS: CT THORACIC SPINE: There is 3 degrees dextrocurvature of thoracic spine. Vertebral body heights are n ormal. There is mildly decreased disc height at most levels. There is multilevel facet joint osteoart hritis, severe at a few levels. On the right, there is mild neural foraminal stenosis at T4-T5. At T6 -T7, T7-T8, and T9-T10, there is mild central canal stenosis. CT LUMBAR SPINE: Bone alignment is normal. Vertebral body heights are normal. There is mildly decreas ed disc height at L3-L4 and severely decreased disc height at L4-L5. There are old fractures of right L2 and L3 transverse processes. The following disc levels are specifically discussed: L1-L2: The disc is bulging. There is mild bilateral facet joint osteoarthritis. There is no neural fo raminal stenosis. There is mild central canal stenosis. L2-L3: The disc is bulging. There is moderate bilateral facet joint osteoarthritis. There is mild petty ateral neural foraminal stenosis. There is mild central canal stenosis. L3-L4: The disc is bulging. There is mild bilateral facet joint osteoarthritis. There is mild bilater al neural foraminal stenosis. There is mild central canal stenosis. L4-L5: The disc is bulging. There is moderate bilateral facet joint osteoarthritis. There is mild petty ateral neural foraminal stenosis. There is mild central canal stenosis. L5-S1: The disc does not extend beyond the endplate margin. There is severe right and moderate left f acet joint osteoarthritis. There is mild bilateral neural foraminal stenosis. There is no central can al stenosis. IMPRESSION: 1. Mild thoracic spondylosis and severe lumbar spondylosis. Reviewed, dictated and finalized at location A.
[2023-11-19 05:11] VITALS: BP 146/72; PULSE 62; RESP 17; TEMP 36.5; O2SAT 98
[2023-11-19 05:14] VITALS: BP 146/72; PULSE 60; RESP 18; O2SAT 99
[2023-11-19] MEDS: LACTATED RINGERS 1,000 ML 999 ML IV CONT (05:32)
[2023-11-19] MEDS: ONDANSETRON INJ 4 MG/2 ML VIAL IV PUSH (05:32)
[2023-11-19] MEDS: HYDROmorphone HCL INJ (*CRX) 1 MG/ML SYR IV PUSH (05:33)
[2023-11-19 05:53] LABS: Basophils Percent Auto 0.5 % (0.2-1.2); Eosinophils Absolute Auto 0.1 K/mm3 (0-0.3); Eosinophils Percent Auto 1.5 % (0-4.4); Hemoglobin 12.7 g/dL (12.0-15.0); Immature Granulocyte Absolute 0.01 K/mm3 (0.00-0.031); Immature Granulocyte Percent A 0.2 % (0-0.5); Lymphocytes Absolute Auto 2.17 K/mm3 (0.9-3.2); Lymphocytes Percent Auto 36.6 % (18.3-44.2); Mean Corpuscular HGB Conc 31.8 g/dl (32-36); Mean Corpuscular Hemoglobin 30.3 pg (26-34); Mean Corpuscular Volume 95.5 fl (80-100); Mean Platelet Volume 9.4 fl (7.4-10.4); Monocytes Absolute Auto 0.5 K/mm3 (0.1-0.6); Monocytes Percent Auto 8.6 % (2.6-8.5); Neutrophils Absolute Auto 3.1 K/mm3 (1.3-6.7); Neutrophils Percent Auto 52.6 % (45.5-73.1); Platelet Count Result 317 k/mm3 (150-375); Red Blood Count 4.19 M/mm3 (4.2-5.4); Red Cell Distribution Width 13.1 % (11.5-14.5); White Blood Count 5.9 K/mm3 (4.5-10.0)
[2023-11-19 05:58] LABS: Add Urine Microscopic? YES; Appearance Urine Clear (Clear); Bacteria Urine None Seen /hpf; Bilirubin Urine Negative (Negative); Blood Urine Negative (Negative); Color Urine Yellow (Yellow); Glucose Urine UA Negative (Negative); Ketones Urine Negative (Negative); Leukocyte Esterase Ur Trace LEU/UL (Negative); Nitrate Urine Negative (Negative); Non Pathogenic Casts 0-2; Protein Urine Negative (Negative); RBC Urine 0-2 /hpf (0-2); Specific Grav Ur 1.006 (1.001-1.035); Squamous Epithelial Cell Urine Occasional /hpf (Few); Urobilinogen Urine 0.2 mg/dL (<2.0); WBC Urine 0-5 /hpf (0-3); pH Urine 6.5 (5.0-9.0)
[2023-11-19 06:01] LABS: Alanine Aminotransferase 20 U/L (6-35); Albumin Level 4.2 g/dL (3.5-5.1); Alkaline Phosphatase 74 U/L (38-126); Anion Gap 6 mmol/L (4-12); Aspartate Amino Transferase 25 U/L (14-36); Bilirubin,Total 0.3 mg/dL (0.2-1.3); Blood Urea Nitrogen 10 mg/dL (7-17); Carbon Dioxide 31 mmol/L (22-30); Chloride 96 mmol/L (98-107); Estimated CRCL calculation 56 ml/min; Estimated Glomerular Filt Rate > 60; Glucose 101 mg/dL (65-110); Lipase 80 U/L (23-300); Potassium 3.4 mmol/L (3.4-5.0); Sodium 133 mmol/L (137-145)
[2023-11-19 06:02] LABS: Lactic Acid Reflex 0.9 mmol/L (0.7-2.0)
[2023-11-19 06:03] LABS: INR 0.9; Prothrombin Time 12.4 Seconds (11.1-14.7)
[2023-11-19 06:04] LABS: Partial Thromboplastin Time 29.9 Seconds (22.3-36.8)
--- NOTE | 2023-11-19 06:16 | ED.ABDPAIN ---
HPI - Abdominal Pain General Chief Complaint: Abdominal Pain Stated Complaint: L sided flank pain Time Seen by Provider: 11/19/23 04:47 History of Present Illness HPI narrative: This is a 73-year-old female with a past medical history significant for chronic back pain who presents to the emergency department chief complaint of left-sided back pain left-sided flank pain that does not radiate anywhere. Patient states that she was walking in the park when she started only had gradual onset left-sided back pain. She states that it got to the point where it was unbearable at home and she was unable to sit still or lying flat. She has tried some at home therapies without any improvement her symptoms. She presents to the ED for evaluation. Denies any urinary complaints, nausea, vomiting, fever, chills, chest pain, shortness a breath, trauma or injuries. Was otherwise in her normal state of health. Has had similar pain like this and other joints and things that could be related to her bones or joints. No history of kidney stones. No abdominal surgeries. Related Data Home Medications Medication Instructions Recorded Confirmed buspirone 10 mg tablet mg PO 09/18/23 10/31/23 tretinoin 0.1 % topical cream applic topical 09/18/23 10/31/23 Allergies Allergy/AdvReac Type Severity Reaction Status Date / Time lisinopril Allergy Unknown cough Verified 10/31/23 14:35 erythromycin base AdvReac Mild NAUSEA Verified 10/31/23 14:35 Review of Systems Review of Systems: As reviewed above in the HPI [facility] Past Medical History Medical History Accelerated hypertension Back Pain Dizziness of unknown etiology Hip pain Hypersomnia Family History Family History Mother Family history of anemia Family history of chronic obstructive pulmonary disease Father Cerebrovascular accident Family history of chronic obstructive pulmonary disease Social History Social History Smoking packs per day: 0.25 Smoking cigarettes per day: 5.0 Years smoked: 39 Smoking pack-years: 9.75 Smoking status: Current every day smoker Tobacco type: e-cigarettes/vaping Alcohol intake: current Drinks per week: 3 Substance use: current Substance use type: marijuana Last use: gummy occasionally Do You Feel Safe in your Home?: Yes Lack of Transportation: No Lack of Food: Never True Current Housing: I Have Housing Concerned About Future Housing: No Difficulty Paying Gas/Electric Bills: No Difficulty Paying for Meds: No Currently Unemployed: No Education: Associate Degree Difficulty w/ Childcare or Family Care: No Exam Narrative: GENERAL: [Well-appearing, well-nourished, and in no acute distress.] HEAD: [Normocephalic, atraumatic.] EYES: [PERRLA and EOMI.] ENT: Nares clear, no rhinorrhea or epistaxis. Mucous membranes moist. NECK: Supple. CHEST: [Clear to auscultation. No respiratory distress.] HEART: [Regular rate and rhythm]. No murmur heard. [Normal peripheral pulses.] ABDOMEN: [Soft, nondistended], [nontender], [No rigidity or guarding] left-sided CVA tenderness, no overlying skin changes or rashes. EXTREMITIES: Normal range of motion. [No edema.] SKIN: Warm, dry, no rash. NEURO: [No focal deficits]. Alert and oriented [x3.] PSYCH: [Normal mood and affect.] Course Vital Signs Vital signs: Vital Signs Temperature 36.5 C 11/19/23 05:11 Pulse Rate 62 11/19/23 05:11 Respiratory Rate 17 11/19/23 05:11 Blood Pressure 146/72 H 11/19/23 05:11 Pulse Oximetry 98 11/19/23 05:11 Oxygen Delivery Room Air 11/19/23 05:11 Temperature 36.5 C 11/19/23 05:11 Pulse Rate 60 11/19/23 05:14 Respiratory Rate 18 11/19/23 05:14 Blood Pressure 146/72 H 11/19/23 05:14 Pulse Oximetry 9
== END 2023-11-19 06:35 | disposition home or self-care (01) ==
PROVIDERS: Emergency Provider Student in an Organized Health Care Education/Training Program; PCP Emergency Medicine
DX: R10.9 Unspecified abdominal pain (principal); M54.50 Low back pain, unspecified; G89.29 Other chronic pain; I10 Essential (primary) hypertension; F17.290 Nicotine dependence, other tobacco product, uncomplicated; M47.816 Spondylosis without myelopathy or radiculopathy, lumbar region; M47.814 Spondylosis without myelopathy or radiculopathy, thoracic region; Z79.899 Other long term (current) drug therapy
CPT/HCPCS: 36415; 71046; 72128; 72131; 74176; 80053; 81001; 83605; 83690; 85025; 85610; 85730; 96361; 96374; 96375; 99284; J1170; J2405; J7120

== ENCOUNTER 2023-12-25 23:12 | Emergency (ER) | payer MEDICARE, SELFPAY ==
--- NOTE | ~2023-12-25 | XR_ITS ---
Clinical Indication: Jaw pain PA and lateral views of the chest: Comparison: 11/19/2023 Findings: The lungs are clear, without evidence of focal consolidation or pleural effusion. Cardiome diastinal silhouette is within normal limits. Bones and soft tissues are unremarkable. Impression: Normal chest. Reviewed, dictated and finalized at location . Impression: Normal chest.
--- NOTE | ~2023-12-25 | CT_ITS ---
Non-contrast Head CT History: Headache Technique: Axial non-contrast imaging of the brain was performed. Dose reduction technique was used on this scan by utilizing automated exposure control and iterative reconstruction technique. The dose -length product (DLP) was 605.33 mGy-cm. Findings: There is no evidence of intracranial hemorrhage, mass lesion, or acute infarct. Brain par enchyma appears normal. The ventricles and subarachnoid spaces are normal in size. The calvarium ap pears normal. The visualized paranasal sinuses and mastoid air cells are clear. Impression: No significant abnormality seen. Reviewed, dictated and finalized at location . Impression: No significant abnormality seen.
--- NOTE | ~2023-12-25 | CT_ITS ---
CT of the Abdomen and Pelvis: Indication: Elevated lipase Technique: 2.5 mm axial scans were obtained through the abdomen and pelvis following intravenous adm inistration of 100 cc of Omnipaque 350. Dose reduction technique was used on this scan by utilizing a utomated exposure control and iterative reconstruction technique. The dose-length product (DLP) was 3 08.21 mGy-cm. COMPARISON: 11/19/2023 Findings: Scans through the lung bases are unremarkable. The liver, spleen, pancreas, gallbladder, adrenals and right kidney are within normal limits. There i s a 1.6 cm hypodense lesion in the left kidney which is greater attenuation than a simple cyst (axial image 61). There are atherosclerotic calcifications of the aorta. Mildly prominent epigastric and po rta hepatis lymph nodes are noted, unchanged. No bowel obstruction or bowel wall thickening. There is no evidence to suggest acute appendicitis. Images through the pelvis were performed. Urinary bladder unremarkable. No pelvic mass seen. No ascit es. Impression: 1.6 cm hypodense left renal mass, greater attenuation than a simple cyst. Pre and postcontrast MR rec ommended to assess for solid lesion versus complex cyst. Stable mildly prominent epigastric/susanna hepatis lymph nodes, nonspecific. Reviewed, dictated and finalized at location . Impression: 1.6 cm hypodense left renal mass, greater attenuation than a simple cyst. Pre a nd postcontrast MR recommended to assess for solid lesion versus complex cyst. Stable mildly prominent epigastric/susanna hepatis lymph nodes, nonspecific.
--- NOTE | 2023-12-25 23:14 | ECG_ITS ---
Test Date: 2023-12-25 23:18:27 Measurements Intervals [place] Rate: 69 P: 80 [place]: 229 QRS: 74 QRSD: 78 T: 55 QT: 390 QTc: 420 Interpretive Statements SINUS RHYTHM WITH FIRST DEGREE AV BLOCK CANNOT R/O SEPTAL INFARCT, AGE INDETERMINATE BASELINE ARTIFACT- I, II, III, AVR, AVL ABNORMAL ECG No previous ECG available for comparison Electronically Signed On 12-26-2023 06:49:16 CDT by Thaddeus Corbett D.O.
[2023-12-25 23:18] VITALS: BP 193/86; PULSE 88; RESP 17; TEMP 36.7; O2SAT 97
[2023-12-25 23:33] LABS: Basophils Percent Auto 0.3 % (0.2-1.2); Eosinophils Absolute Auto 0.1 K/mm3 (0-0.3); Hematocrit 37.1 % (37.0-47.0); Hemoglobin 12.3 g/dL (12.0-15.0); Immature Granulocyte Absolute 0.01 K/mm3 (0.00-0.031); Immature Granulocyte Percent A 0.1 % (0-0.5); Lymphocytes Absolute Auto 2.58 K/mm3 (0.9-3.2); Lymphocytes Percent Auto 36.9 % (18.3-44.2); Mean Corpuscular HGB Conc 33.2 g/dl (32-36); Mean Corpuscular Hemoglobin 31.3 pg (26-34); Mean Corpuscular Volume 94.4 fl (80-100); Mean Platelet Volume 8.9 fl (7.4-10.4); Monocytes Absolute Auto 0.6 K/mm3 (0.1-0.6); Monocytes Percent Auto 7.9 % (2.6-8.5); Neutrophils Absolute Auto 3.7 K/mm3 (1.3-6.7); Neutrophils Percent Auto 52.8 % (45.5-73.1); Platelet Count Result 343 k/mm3 (150-375); Red Blood Count 3.93 M/mm3 (4.2-5.4); Red Cell Distribution Width 12.8 % (11.5-14.5)
[2023-12-25 23:45] LABS: Alanine Aminotransferase 28 U/L (6-35); Albumin Level 4.6 g/dL (3.5-5.1); Alkaline Phosphatase 81 U/L (38-126); Anion Gap 6 mmol/L (4-12); Aspartate Amino Transferase 32 U/L (14-36); Bilirubin,Total 0.3 mg/dL (0.2-1.3); Blood Urea Nitrogen 11 mg/dL (7-17); Calcium 9.5 mg/dL (8.4-10.2); Carbon Dioxide 32 mmol/L (22-30); Chloride 94 mmol/L (98-107); Estimated CRCL calculation 56 ml/min; Estimated Glomerular Filt Rate > 60; Glucose 109 mg/dL (65-110); Lipase 748 U/L (23-300); Potassium 4.6 mmol/L (3.4-5.0); Sodium 132 mmol/L (137-145)
[2023-12-25 23:47] LABS: Partial Thromboplastin Time 28.2 Seconds (22.3-36.8)
[2023-12-25 23:57] LABS: Troponin I < 0.012 ng/mL (0.000-0.034)
[2023-12-26 02:51] VITALS: BP 194/89; PULSE 70; RESP 18; O2SAT 97
[2023-12-26 05:15] VITALS: BP 199/72; PULSE 65; RESP 14; O2SAT 99
[2023-12-26] MEDS: hydroCHLOROthiazide 25 MG TABLET PO (05:40)
[2023-12-26] MEDS: hydrALAZINE HCL 20 MG/ML VIAL 10 MG IV PUSH (05:40)
[2023-12-26] MEDS: MORPHINE SULFATE (*CRX) 2 MG/ML INJ IV PUSH (05:43)
--- NOTE | 2023-12-26 05:59 | ED.GENADULT ---
HPI - General Adult General Chief complaint: Headache Stated complaint: high blood pressure Time Seen by Provider: 12/26/23 05:16 History of Present Illness HPI narrative: 73-year-old female presenting to the emergency department for evaluation headache. Patient does have prior history of hypertension but states that her blood pressure is typically well controlled. Patient states last Friday that she began having elevated blood pressures. Patient did recently have her losartan increased to 100 mg. Patient states that she has been having worsening headache associated with the high blood pressures. Patient denies any associated chest pain. Related Data Home Medications Medication Instructions Recorded Confirmed tretinoin 0.1 % topical cream applic topical 09/18/23 12/23/23 Allergies Allergy/AdvReac Type Severity Reaction Status Date / Time lisinopril Allergy Unknown cough Verified 12/23/23 09:56 erythromycin base AdvReac Mild NAUSEA Verified 12/23/23 09:56 Review of Systems Review of Systems: All systems reviewed & are unremarkable except as noted in HPI and below PMFSH Past Medical History Medical History Accelerated hypertension Back Pain Dizziness of unknown etiology Hip pain Hypersomnia Family History Family History Mother Family history of anemia Family history of chronic obstructive pulmonary disease Father Cerebrovascular accident Family history of chronic obstructive pulmonary disease Social History Social History Smoking packs per day: 0.25 Smoking cigarettes per day: 5.0 Years smoked: 39 Smoking pack-years: 9.75 Smoking status: Current every day smoker Tobacco type: e-cigarettes/vaping Alcohol intake: current Drinks per week: 3 Substance use: current Substance use type: marijuana Last use: gummy occasionally Do You Feel Safe in your Home?: Yes Lack of Transportation: No Lack of Food: Never True Current Housing: I Have Housing Concerned About Future Housing: No Difficulty Paying Gas/Electric Bills: No Difficulty Paying for Meds: No Currently Unemployed: No Education: Associate Degree Difficulty w/ Childcare or Family Care: No Exam Narrative: APPEARANCE: Well appearing, no pain, no distress, well-nourished. HEAD: normocephalic, atraumatic. EYES: PERRLA/EOMI, conjunctivae clear. NOSE: Normal no drainage EARS:TMS clear with good light reflex. THROAT: Pharynx clear, no exudate. NECK: Supple. No adenopathy, no masses. RESPIRATORY: Airway patent, respirations nonlabored. Clear to auscultation bilaterally, no rales, rhonchi, wheezing. CARDIOVASCULAR: Regular rate and rhythm without murmurs rubs or gallops. ABDOMINAL: Soft, nontender, nondistended, normal bowel sounds MUSCULOSKELETAL: Moves all extremities. Strength/ROM intact, No edema, No calf tenderness. NEURO: Alert. Cranial nerves II through XII intact. Grossly intact SKIN: Warm, dry. Normal Color Course Vital Signs Vital signs: Vital Signs Temperature 98.0 F 12/25/23 23:18 Pulse Rate 88 12/25/23 23:18 Respiratory Rate 17 12/25/23 23:18 Blood Pressure 193/86 H 12/25/23 23:18 Pulse Oximetry 97 12/25/23 23:18 Oxygen Delivery Room Air 12/25/23 23:18 Temperature 98.0 F 12/25/23 23:18 Pulse Rate 68 12/26/23 07:35 Respiratory Rate 15 12/26/23 07:35 Blood Pressure 145/54 H 12/26/23 07:35 Pulse Oximetry 99 12/26/23 07:35 Oxygen Delivery Room Air 12/25/23 23:18 Medical Decision Making MDM Narrative Medical decision making narrative: 73-year-old female presented emergency department for evaluation for elevated blood pressures. Patient's blood pressures did respond well to treatment emergency department. Patient is afebrile with no leukocytosis and a stabl
[2023-12-26 06:04] VITALS: BP 156/67; PULSE 67; RESP 14; O2SAT 98
[2023-12-26 06:15] LABS: Troponin I < 0.012 ng/mL (0.000-0.034)
[2023-12-26] MEDS: KETOROLAC 15 MG/ML VIAL (*BKC) IV PUSH (07:34)
[2023-12-26 07:35] VITALS: BP 145/54; PULSE 68; RESP 15; O2SAT 99
== END 2023-12-26 07:36 | disposition home or self-care (01) ==
PROVIDERS: Emergency Provider Emergency Medicine; PCP Emergency Medicine
DX: R51.9 Headache, unspecified (principal); I10 Essential (primary) hypertension; N28.89 Other specified disorders of kidney and ureter; R74.8 Abnormal levels of other serum enzymes; F17.290 Nicotine dependence, other tobacco product, uncomplicated; Z79.899 Other long term (current) drug therapy
CPT/HCPCS: 36415; 70450; 71046; 74177; 80053; 83690; 84484; 85025; 85610; 85730; 93005; 96374; 96375; 99284; A9270; J0360; J1885; J2270; Q9967

== ENCOUNTER 2024-06-10 08:05 | Outpatient (CLI) | payer MEDICARE, SELFPAY ==
--- NOTE | ~2024-06-10 | CT_ITS ---
EXAMINATION: CT abdomen w con DATE: 06/10/2024 08:50 INDICATION: Left renal cell carcinoma TECHNIQUE: Computed tomography (CT) of the abdomen was performed with 100 mL Omnipaque-350 intravenou s contrast. Automated exposure control and iterative reconstruction technique were employed. The dose -length product was 159.28 mGy-cm. COMPARISON: 12/26/2023 FINDINGS: Mild bibasilar discoid atelectasis. Heart size is normal. No pericardial or pleural effusion. Bilater al breast implants. Liver, gallbladder, spleen, pancreas, bilateral adrenal glands and right kidney a re normal. Increase in size of a previously 1.7 cm, currently 2.6 x 2.1 cm soft tissue density lesion at the lower pole of the left kidney. No significant change in size of a chronic 1.5 cm cyst, also a t the lower pole the left kidney which can be seen dating back to CT dated 12/19/2014. There are a few diverticula along the visualized portions of the colon without adjacent from trace stranding to sugg est diverticulitis. No bowel obstruction. No pathologically enlarged abdominal or upper pelvic lympha denopathy. Severe disc height loss at L4-L5. IMPRESSION: 1. Increase in size of a to 2.6 x 2.1 cm soft tissue density lesion at the lower pole the left kidney which remains indeterminate for solid enhancing renal cell carcinoma versus hyperdense proteinaceous /hemorrhagic cyst. Would recommend pre and postcontrast MRI or CT for more definitive determination. Reviewed, dictated and finalized at location L. INTELLIGENCE OFFICER IMPRESSION: 1. Increase in size of a to 2.6 x 2.1 cm soft tissue density lesion at the lowe r pole the left kidney which remains indeterminate for solid enhancing renal ce ll carcinoma versus hyperdense proteinaceous/hemorrhagic cyst. Would recommend pre and postcontrast MRI or CT for more definitive determination.
[2024-06-10 08:38] LABS: Estimated Glomerular Filt Rate > 60
== END 2024-06-10 08:06 | disposition home or self-care (01) ==
LOC: GOSHIMG 08:07
PROVIDERS: PCP Family Medicine; Visit Provider Family Medicine
DX: C64.9 Malignant neoplasm of unspecified kidney, except renal pelvis (principal)
CPT/HCPCS: 74160; Q9967

== ENCOUNTER 2024-07-16 11:47 | Outpatient (CLI) | payer MEDICARE, SELFPAY ==
--- NOTE | ~2024-07-16 | MR_ITS ---
EXAMINATION: MRA abdomen wo/w con DATE: 07/16/2024 12:45 INDICATION: Essential (primary) hypertension TECHNIQUE: Magnetic resonance angiography (MRA) of the abdomen was performed without and with 12 mL M ultihance intravenous contrast. Sequences included axial and coronal 2-D FIESTA, 3-D phase contrast a t the level renal arteries and pre contrast and two sequential coronal postcontrast FSPGR from which rotating maximum intensity projection reconstructions were performed. COMPARISON: CT dated 06/10/2024 and 12/26/2023 FINDINGS: Heart size is normal. No pericardial or pleural effusion. Bilateral breast implants. Liver, gallbladd er, spleen, pancreas and bilateral adrenal glands are normal. Right kidney is normal. 4 mm T2 hyperin tense nonenhancing cyst at the upper pole of the left kidney. There is a 1.2 cm T1 hyperintense nonen hancing likely proteinaceous/hemorrhagic cyst at the lower pole of the right kidney. 2.0 x 1.2 cm les ion at the lower pole of the left kidney corresponding to the lesion of concern on the recent CT whic h is without evident contrast enhancement on postcontrast imaging suggests increased T1 signal and in creased density on prior CT correlate to residual blood or proteinaceous fluid post ablation of a pre viously seen enhancing mass seen on CT dated 12/26/2023. There is mild scattered nonhemodynamically si gnificant atherosclerotic plaque along the abdominal aorta. No evident stenosis at the celiac axis, s uperior mesenteric, inferior mesenteric or bilateral renal arteries. Visualized portions of bowels ar e unremarkable. No pathologically enlarged abdominal lymphadenopathy. Severe lumbar spondylosis. Norm al marrow signal throughout. IMPRESSION: 1. No hemodynamically significant stenosis at the bilateral renal arteries. 2. Nonenhancing lesions at the lower pole of left kidney which likely represents a proteinaceous/hemo rrhagic cyst and the second likely reflecting proteinaceous fluid or blood post ablation of a previou s enhancing reported renal cell carcinoma. Reviewed, dictated and finalized at location A. IMPRESSION: 1. No hemodynamically significant stenosis at the bilateral renal arteries. 2. Nonenhancing lesions at the lower pole of left kidney which likely represent s a proteinaceous/hemorrhagic cyst and the second likely reflecting proteinaceo us fluid or blood post ablation of a previous enhancing reported renal cell car cinoma.
== END 2024-07-16 11:48 | disposition home or self-care (01) ==
LOC: MICIMG 11:48
PROVIDERS: PCP Family Medicine; Visit Provider Student in an Organized Health Care Education/Training Program
DX: R93.5 Abnormal findings on diagnostic imaging of other abdominal regions, including retroperitoneum (principal); N28.89 Other specified disorders of kidney and ureter; I10 Essential (primary) hypertension
CPT/HCPCS: 74185; A9577; C8902

== ENCOUNTER 2024-08-06 09:19 | Outpatient (CLI) | payer MEDICARE, SELFPAY ==
--- OUTSIDE RECORDS SUMMARY | 2024-08-07 11:28 | XMS_ITS | Clinical Summary ---
Author Organization [facility] m Address [address] [place] [id number] Care Team Providers Care Heater Worker Name Role Phone Noemi Dent NP Primary Care Provider [phone] Allergies Active Allergy Reactions Criticality Noted Date Comments Erythromycin Low 01/21/2022 nausea Medications atorvastatin (Lipitor) 20 mg tablet Take 1 tablet (20 mg) by mouth in the morning. 07/21/2021 Active cyclobenzaprine (Flexeril) 10 mg tablet Take 10 mg by mouth if needed in the morning, at noon, and at bedtime. 08/22/2021 Active hydroCHLOROthia zide (HYDRODiuril) 25 mg tablet Take 1 tablet (25 mg) by mouth in the morning. 01/14/2022 Active losartan (Cozaar) 100 mg tablet Take 1 tablet (100 mg) by mouth at bedtime. 02/03/2024 Active citalopram (CeleXA) 20 mg tablet Take 1 tablet (20 mg) by mouth 1 (one) time each day. 90 tablet 3 03/10/2024 03/10/20 25 Active ALPRAZolam (Xanax) 0.5 mg tablet Take 1 tablet (0.5 mg) by mouth if needed in the morning and at bedtime for anxiety or sleep for up to 7 days. 14 tablet 05/28/2024 Active methylPREDNISol one (Medrol Dospak) 4 mg tablets Take as directed on package. 21 tablet 05/28/2024 Active Active Problems Problem Noted Date Diagnosed Date Anxiety 01/22/2024 Mass of kidney 01/22/2024 Right groin pain 04/04/2022 Other insomnia 04/04/2022 Hand pain, right 04/04/2022 Skin lesion 04/04/2022 Hypertension 04/04/2022 Screening for osteoporosis 04/04/2022 Osteopenia of lumbar spine 04/04/2022 Pre-op exam 01/22/2022 Cataract of right eye 01/22/2022 Hip pain, chronic, right 01/22/2022 Encounters Date Type Department Care Team Description 05/28/2024 8:15 AM EST Office Visit [facility] Medical [facility] - [address], [place] [id number] Elpidio Reddy NP Chronic right-sided low back pain with right-sided sciatica (Primary Dx); Primary hypertension; Other depression 05/28/2024 Travel 05/27/2024 Telephone [facility] - [address] [address] Noemi Dent NP Medical question from Last 3 Months Immunizations Immunization Administration Dates Next Due TD (adult), 2 Lf tetanus tox oid, preservative free, adsorbed 06/12/2019 Tdap 05/22/2015,08/05/2014 Zoster, Recombinant 02/18/2020 Zoster, Unspecified 01/24/2022 Family History Medical History Relation Name Comments Macular degeneration Child Adrenal carcinoma Father Cancer Father Bladder Depression Father Lung cancer Father Lung cancer Mother Relation Name Status Comments Child Father Mother Social History Tobacco Use Types Packs/Day Years Used Date Smoking Tobacco: Former Cigarettes Q uit: 2009 Smokeless Tobacco: Never Tobacco Cessation:Counseling Given: Not Answered Alcohol Use Standard Drinks/Week Comments Yes 4 (1 standard drink = 0.6 oz pur e alcohol) AUDIT-C Answer Date Recorded Q1: How often do you have a drink containing alc ohol? 2-3 times a week 02/25/2024 Q2: How many drinks containi ng alcohol do you have on a typical day when you are drinking? 1 or 2 02/25/2024 Q3: How often do you have si x or more drinks on one occasion? Never 02/25/2024 PHQ-2 Answer Date Recorded Patient Health Questionnaire-2 Score 0 05/28/2024 Hunger Vital Sign Answer Date Recorded Within the past 12 months, y ou worried that your food would run out before you got the money to buy more. Never true 02/25/20 24 Within the past 12 months, t he food you bought just didn't last and you didn't have money to get more. Never true 02/25/2024 PRAPARE - Transportation Answer Date Re corded In the past 12 months, has l ack of transportation kept you from medical appointments or from getting medications? No 02/06 In the past 12 months, has l ack of transportation kept you from meetings, work, or from getting things needed for daily living? No 02/25/2024 Comments Unknown Sex and Gender Information Value Date Recorded Sex Assigned at Female 02/10/2024 12:19 PM EST Legal Sex Female 10:26 PM EDT Gender Identity Not on file Sexual Orientation Not on file Last Filed Vital Signs Vital Sign Reading Time Taken Comments Blood Pressure 175/95 05/28/2024 8:23 AM EST Pulse 73 05/28/2024 8:23 AM EST Temperature 36.6 C (97.9 F) 02/27/2024 1:50 PM EST Respiratory Rate 16 05/28/2024 8:23 AM EST Oxygen Saturation 99% 05/28/2024 8:23 AM EST Inhaled Oxygen Concentration - - Weight 62.6 kg (138 lb) 05/28/2024 8:23 AM EST Height 165.1 cm (5' 5 ) 05/28/2024 8:23 AM EST Body Mass Index 22.96 05/28/2024 8:23 AM EST Plan of Treatment Health Maintenance Due Date Last Done Comments CT Colonography 1951 FIT-DNA 1950 FIT 1950 FOBT 1950 Medicare Annual Wellness (AWV) 1950 Sigmoidoscopy 1950 Hepatitis C Screening 1969 Pneumococcal Vaccine: 65+ Years (2 of 2 - PCV) 01/16/2021 01/17/2020 Mammogram 02/01/2023 02/01/2021, 06/05, 06/15/2019, Additional history exists COVID-19 Vaccine ( season) 2023 03/16/2021, 06/08/2020, 05/09/2020 Bone Density Scan 04/17/2024 04/17/2022, , 12/14/2018, Additional history exists Colonoscopy 02/02/2025 02/02/2015 Colorectal Cancer Screening 02/02/2025 DTaP/Tdap/Td Vaccines (4 - Td or Tdap) 06/11/2029 06/12/2019, 06/12/2019, 05/22/2015, Additional history exists Zoster Vaccines Completed 01/24/2022, 02/05, 12/06/2019 Influenza Vaccine Completed 12/21/2023, , 01/26/2022, Additional history exists HIB Vaccines Aged Out No longer eligi ble based on patient's age to complete this topic HPV Vaccines Aged Out No longer eligi ble based on patient's age to complete this topic Hepatitis A Vaccines Aged Out No long er eligible based on patient's age to complete this topic Hepatitis B Vaccines Aged Out No long er eligible based on patient's age to complete this topic IPV Vaccines Aged Out No longer eligi ble based on patient's age to complete this topic Meningococcal B Vaccine Aged Out No l onger eligible based on patient's age to complete this topic Meningococcal Vaccine Aged Out No derik sagar eligible based on patient's age to complete this topic Rotavirus Vaccines Aged Out No longer eligible based on patient's age to complete this topic Procedures Procedure Name Priority Date/Time Associated Diagnosis Comments DEXA BONE DENSITY Routine 04/17/2022 1:5 5 PM EST Osteopenia of lumbar spine BI MAMMOGRAM DIAGNOSTIC TOMOSYNTHESIS LEFT Routine 06/15/2019 9:13 AM EDT Striking against other object with subsequent fall, initial encounter Mastodynia HM COLONOSCOPY Routine 02/02/2015 from Last 3 Months or Most Recently Relevant to Health Maintenance Results * DEXA bone density (04/17/2022 1:55 PM EST) Anatomical Region Laterality Modality Body Radiographic Sonia ging 04/17/2022 2:35 PM EST Narrative 04/17/2022 2:35 PM EST HISTORY: F, 72 y/o . Evaluate for osteoporosis. TECHNICAL FACTORS: Bone Mineral Density (BMD) measurements of the lumbar spine and/or bilateral hips and/or nondominant forearm were obtained. COMPARISON: None. FINDINGS: The average bone mineral density of: L1-L4: 1.160 g/cm2 . T-score -0.3. Z-score 1.4 Left femoral Neck: 0.674 g/cm2 . T-score -2.6. Z-score -0.9 Right femoral Neck: 0.709 g/cm2 . T-score -2.4. Z-score -0.6 CONCLUSION: The patient is considered osteoporotic as outlined below according to World Vic Organization (WHO) criteria with a high fracture risk. Reference Information: The T-score is the number of standard deviations above or below the standard which is normal for young adults at their peak bone mineral density. The World Health Organization (WHO) interprets the T-scores as follows: Above -1 Normal bone density Between -1 and -2.5 Osteopenia Equal to / or below -2.5 Osteoporosis As a practical clinical guideline, osteopenia may be graded as follows: Mild -1 through -1.5 Moderate -1.6 through -2.0 Severe -2.1 through -2.4 The Z-score is the number of standard deviations above or below age-matched controls. A Z-score of less than -1.5 would be considered abnormal. References: 1. NIH Osteoporosis and Related Bone Diseases http://www.osteo.org 2. International Society for Clinical Densitometry http://www.iscd.org 3. National Osteoporosis Foundation http://www.nof.org Thank you for the opportunity to provide your interpretation. Betsy Dial MD A: KT 04/17/2022 2:35 PM Procedure Note Betsy Dial MD - 04/17/2022 HISTORY: F, 72 y/o . Evaluate for osteoporosis. TECHNICAL FACTORS: Bone Mineral Density (BMD) measurements of the lumbarspine and/or bilateral hips and/or nondominant forearm were obtained. COMPARISON: None. FINDINGS: The average bone mineral density of: L1-L4: 1.160 g/cm2 . T-score -0.3. Z-score 1.4 Left femoral Neck: 0.674 g/cm2 . T-score -2.6. Z-score -0.9 Right femoral Neck: 0.709 g/cm2 . T-score -2.4. Z-score -0.6 CONCLUSION: The patient is considered osteoporotic as outlined below according toWorld Vic Organization (WHO) criteria with a high fracture risk. Reference Information: The T-score is the number of standard deviations above or below thestandard which is normal for young adults at their peak bone mineraldensity. The World Health Organization (WHO) interprets the T-scores asfollows: Above -1 Normal bone density Between -1 and -2.5 Osteopenia Equal to / or below -2.5 Osteoporosis As a practical clinical guideline, osteopenia may be graded as follows: Mild -1 through -1.5 Moderate -1.6 through -2.0 Severe -2.1 through -2.4 The Z-score is the number of standard deviations above or belowage-matched controls. A Z-score of less than -1.5 would be consideredabnormal. References: 1. NIH Osteoporosis and Related Bone Diseases http://www.osteo.org 2. International Society for Clinical Densitometry http://www.iscd.org 3. National Osteoporosis Foundation http://www.nof.org Thank you for the opportunity to provide your interpretation. Betsy Dial MD A: KT 04/17/2022 2:35 PM Veronica LIPSCOMB IMG DXA PROCEDURES Final R esult * BI mammogram diagnostic tomosynthesis left (06/15/2019 9:13 AM EDT) Anatomical Region Laterality Modality Breast Left Mammography 06/15/2019 8:44 AM EDT us Provider Not In System IMG BI PROCEDURES Final R esult * Hm Colonoscopy (02/02/2015) Colonoscopy Colonoscopy Anatomical Region Laterality Modality Other Historical Provider HEALTH MAINTENANCE Final Result from Last 3 Months or Most Recently Relevant to Health Maintenance Insurance MEDICARE [facility] MEDICARE SUPPLEMENT Care Teams Heater Worker Relationship Specialty Start Date End Date Noemi Dent NP [address] [place] [id number] PCP - General Internal Medicine 07/02/22
--- OUTSIDE RECORDS SUMMARY | 2024-08-07 11:28 | XMS_ITS | Encounter Summary ---
Author Organization [facility] Address [address] [place] [address] Care Team Providers Care Photo Tech Name Role Phone Noemi Dent NP Primary Care Provider [phone] Reason for Visit * Reason Onset Date Comments Medical question 05/27/2024 Encounter Details Date Type Department Care Team (Late st Contact Info) Description 05/27/2024 Telephone [facility] Internal Medicine - [address] [address] Noemi Dent, NAT [address] [place] [id number] Medical question Social History Tobacco Use Types Packs/Day Years Used Date Smoking Tobacco: Former Cigarettes Q uit: 2010 Smokeless Tobacco: Never Alcohol Use Standard Drinks/Week Comments Yes 4 [...] on file Sexual Orientation Not on file documented as of this encounter Functional Status * Question Answer Date of Assessment Author Little interest or pleasure in doing things Not at all 05/28/2024 8:23 AM Dwight Noble MA Feeling down, depressed, or hopeless Not at all 05/28/2024 8:23 AM Dwight Noble MA * Over the past 2 weeks, how often have you been bothered by any of the following problems? Question Answer Date of Assessment Author Patient Health Questionnaire -2 Score 0 05/28/2024 8:23 AM Dwight Noble MA documented as of this encounter Miscellaneous Notes * Telephone Encounter - Lida Bertrand - 05/27/2024 10:47 AM EST Who is calling: (first, last name) Aleksandra Nabil What is the reason for the call: Medical question Does the pt. need a call back & why? Yes Best Contact Number: [phone] Details to clarify the request: Patient had an inquiry on low back and wants to know if dr Lopez send a pain medication, she has been on [facility] unit for 3 days now, please check and advice as soon as possible Live Transfer (Y/N) No documented in this encounter Plan of Treatment Not on file documented as of this encounter Visit Diagnoses Not on filedocumented in this encounter Care Teams Photo Tech Relationship Specialty Start Date End Date Noemi Dent NP [address] [place] [address] PCP - General Internal Medicine 07/02/22 documented as of this encounter
--- OUTSIDE RECORDS SUMMARY | 2024-08-07 11:28 | XMS_ITS | Clinical Summary ---
Author Organization [facility] Address [address] [place] [address] Care Team Providers Care Noc Analyst Name Role Phone Josh Collins MD Primary Care Provider [phone] Allergies Active Allergy Reactions Criticality Noted Date Comments Erythromycin Unknown 01/21/2022 Hydromorphone Unknown Medium 01/21/2022 Other Unknown 11/30/2018 Medications ALPRAZolam (XANAX) 0.5 mg tablet TK 1 T PO Q 2 H PRN 3 9 Active atorvastatin (LIPITOR) 20 mg tablet TK 1 T PO QD 3 9 Active ibuprofen (ADVIL,MOTRIN) 800 mg tablet TK 1 T PO TID WF PRN 0 9 Active hydroCHLOROthia zide (HYDRODIURIL) 25 mg tablet Take 1 tablet (25 mg total) by mouth daily 1 Active estradioL (ESTRACE) 0.5 mg tablet Take 1 tablet (0.5 mg total) by mouth daily 90 tablet 6 1 Active busPIRone (BUSPAR) 10 mg tablet Take 1 tablet (10 mg total) by mouth 2 (two) times a day 4 Active cyclobenzaprine (FLEXERIL) 5 mg tablet Take 1 tablet (5 mg total) by mouth 3 (three) times a day as needed for muscle spasms Active linaCLOtide (LINZESS) 72 mcg capsule Take 1 capsule (72 mcg total) by mouth daily before breakfast 4 Active traZODone (DESYREL) 50 mg tablet TAKE 2 TABLETS(100 MG) BY MOUTH AT BEDTIME NEEDED FOR SLEEP 3 Active losartan (COZAAR) 25 mg tablet Take 1 tablet (25 mg total) by mouth daily 4 Active Active Problems Problem Noted Date Diagnosed Date ERRONEOUS ENCOUNTER--DISREGARD 09/15/2023 Hand pain, right 04/04/2022 Hypertension 04/04/2022 Other insomnia 04/04/2022 Right groin pain 04/04/2022 Skin lesion 04/04/2022 Osteopenia of lumbar spine 04/04/2022 Cataract of right eye 01/22/2022 Hip pain, chronic, right 01/22/2022 Vitamin D deficiency disease 08/28/2010 Osteoporosis 08/07/2010 Immunizations Immunization Administration Dates Next Due Pneumococcal Polysaccharide PPV23 01/17/2020 ZOSTER Recombinant 02/18/2020,12/06/2019 Surgical History Surgery Date Site/Laterality Comments TOTAL ABDOMINAL HYSTERECTOMY W/ BILATERAL SALPINGOOPHORECTOMY 04/07/1995 - 04/06/1996 Pelvic Adhesions AUGMENTATION MAMMAPLASTY ABDOMINOPLASTY 04/07/2010 - 04/06/2011 Medical History Medical History Date Comments Osteoporosis Family History Medical History Relation Name Comments Breast cancer Neg Hx Colon cancer Neg Hx Ovarian cancer Neg Hx Uterine cancer Neg Hx Social History Tobacco Use Types Packs/Day Years Used Date Smoking Tobacco: Never Smokeless Tobacco: Never Personal Safety Answer Date Recorded Getting School Help Needed Not on file 06/01 Comments No Sex and Gender Information Value Date Recorded Sex Assigned at Not on file 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 Gender Identity Female 12/14/2018 12:44 PM CDT Sexual Orientation Not on file Obstetrics History Last Filed Vital Signs Vital Sign Reading Time Taken Comments Blood Pressure 128/68 01/22/2021 9:27 AM CDT Pulse - - Temperature - - Respiratory Rate - - Oxygen Saturation - - Inhaled Oxygen Concentration - - Weight 62.4 kg (137 lb 8 oz) 01/22/2021 9:27 AM CDT Height 163.8 cm (5' 4.5 ) 01/22/2021 9:27 AM CDT Body Mass Index 23.24 01/22/2021 9:27 AM CDT Plan of Treatment Health Maintenance Due Date Last Done Comments Colon Cancer Screening-Colonoscopy 1950 Depression Screening 1950 Fall Risk Assessment 1950 Hepatitis C Screening 1950 Hepatitis B Screening 1969 Pneumococcal vaccine 65+ (2 of 2 - PCV) 01/16/2021 01/17/2020 Breast Cancer Screening-Mammogram 11/28/2021 021, 06/15/2019 Well Visit 65+ 01/22/2022 01/22/2021 Covid-19 Vaccine (2 - 2023-2 5 season) 2023 10/19/2021 Osteoporosis Screening-Bone Density Scan 04/17/2024 04/17/2022, 12/14/2018, 12/03/2017, Additional history exists Influenza Vaccine (Season Ended) 2024 02/04/2022, 01/17/2021, 12/06/2019, Additional history exists DTaP/Tdap/Td Vaccine (4 - Td or Tdap) 06/11/2029 06/12/2019, 05/22/2015, 08/05/2014 Zoster Vaccine Completed 01/24/2022, 02/05, 12/06/2019 Procedures Procedure Name Priority Date/Time Associated Diagnosis Comments SCREENING MAMMOGRAM BILATERAL W MOHIT Schedule Routine, Read Routine (OP Routine) 11/28/2020 DEXA AXIAL SKELETON BONE DENSITY 1 OR MORE SITES Schedule Routine, Read Routine (OP Routine) 12/14/2018 1:17 PM CDT Age-related osteoporosis without current pathological fracture from Last 3 Months or Most Recently Relevant to Health Maintenance Results * Screening Mammogram Bilateral W Mohit (11/28/2020) Anatomical Region Laterality Modality Breast Bilateral Mammography us Michelle Parker MD IMG MAMMO PROCEDURES Nicole l Result * Dexa Axial Skeleton Bone Density 1 or 2 Site (12/14/2018 1:17 PM CDT) Anatomical Region Laterality Modality Body N/A Radiographic Sonia ging Narrative 12/15/2018 8:28 AM CDT Patient Name: Aleksandra Ferrer Date of : 1950 Date of scan: 12/14/2018 Bone mineral density was performed on a [employer] Discovery Densitometer. Machine Cross-calibration and Precision studies have been performed with a least significant change of 0.024 g/cm at the spine, 0.020 g/cm at the total proximal femur, and 0.014g/cm at the forearm. HISTORY: This is a 68 y.o. postmenopausal female with a history of osteoporosis and vitamin D deficiency. Currently on treatment with hormone replacement therapy. Previously treated with Evista and Reclast. With a current complaint of back pain. History of tobacco use: Social History Tobacco Use Smoking Status Never Smoker INDICATIONS: Menopause status, vitamin D deficiency and history of osteoporosis. FINDINGS: BONE MINERAL DENSITY OF THE LUMBAR SPINE Bone Mineral Density (BMD) of the lumbar spine was measured from L1-L4 and the average density was calculated to be 1.013 gm/cm. This corresponds to a T-score standard deviations from the mean of young adults of -0.3. When compared to the previous study of 12/03/2017 there has been no significant change noted. BONE MINERAL DENSITY OF THE PROXIMAL FEMUR Bone Mineral Density (BMD) of the left hip total was found to be 0.774 gm/cm2. This corresponds to a T-score standard deviations from the mean of young adults of -1.4. Femoral neck is 0.606 gm/cm2 with a T-score of -2.2. When compared to the previous study of 12/03/2017 there has been no significant change noted. SUMMARY: Bone mineral density shows evidence of low bone mass in the hip and moderately increased fracture risk. ADDITIONAL COMMENTS: If the patient has a history of a fragility fracture, a fracture that occurred with trauma equivalent to a fall from a standing position or less, then the diagnosis is osteoporosis. The risk of osteoporotic fracture increases approximately 2-fold for each 1.0 SD decrease in T-score. However, low bone density is not the only risk factor for fracture. Other factors include patient s age, previous osteoporotic fracture or prior fracture as an adult, loss of height of greater than 2 inches, corticosteroid use, risk of falling, risk of injury, and family history of osteoporosis. Not everyone with low bone mineral density has osteoporosis. Osteomalacia and other metabolic bone disorders should also be considered where indicated. Patients who have osteoporosis should be evaluated for specific diseases and conditions (secondary causes) that may cause or contribute to bone loss. Consider repeating this study in 1-2 years to assess the patient s response to treatment, if applicable. It is recommended that any follow up exam be performed on the same machine if possible for better accuracy. DEFINITIONS: Osteoporosis: BMD at or below -2.5 T-score Osteopenia (low bone mass): BMD between -1.0 and-2.5 T-score. The Bone Health Program adopts the following WHO definitions: Osteoporosis: BMD below -2.5 S.D. as compared to the BMD of young normal adults. Osteopenia or Low Bone Mass: BMD between -1.0 and -2.5 S.D. below the BMD of young normal adults. Normal Bone Density: BMD equal to or greater than -1.0 S.D. as compared to the BMD of young normal adults. References: 1) Fred, Annals of Internal Medicine 114(11): 919-923 (1990) 2) Debby, Lancet 341 : 72-75 (1992) 3) Marcos, Journal Bone and Mineral Research 7(6): 633-8 (1991) 4) Maurice, Journal Bone and Mineral Research 8(10):1227-33 (1992) The history and data sections of the bone mineral density scan were prepared by Tiarra Tatum (R)(CBDT) who is accredited by the International Society of Clinical Densitometry. The overall patient assessment and scan interpretation were performed by Emma Haro M.D. who is certified by the International Society of Clinical Densitometry. [id number] Berenice Tay MD IM DXA PROCEDURES Final Re sult from Last 3 Months or Most Recently Relevant to Health Maintenance Insurance MEDICARE [facility] MEDICARE [facility] MEDICARE AARP Care Teams Noc Analyst Relationship Specialty Start Date End Date Josh Collins MD [address] [place] [address] PCP - General Family Medicine 12/03/17
--- OUTSIDE RECORDS SUMMARY | 2024-08-07 11:28 | XMS_ITS | Encounter Summary ---
Author Organization [facility] Address [address] [place] [address] Care Team Providers Care Fashion Design Professor Name Role Phone Noemi Dent NP Primary Care Provider [phone] Reason for Visit * Reason Onset Date Comments Care Coordination 04/09/2024 Encounter Details Date Type Department Care Team (Late st Contact Info) Description 04/09/2024 Telephone [facility] Primary Care - [place] [address], [address] [place], [place] [id number] Noemi Dent NP [address] [facility] [place] [address] Care Coordination Social History Tobacco Use Types Packs/Day Years [...] Date Recorded Patient Health Questionnaire-2 Score 0 01/22/2022 Hunger Vital Sign Answer Date Recorded Within [...] on file documented as of this encounter Miscellaneous Notes * Telephone Encounter - Caroline Munsonilla - 04/09/2024 10:09 AM EST Who is calling: Aleksandra Ferrer Relationship pf the caller if not the patient or from practice: Self What is the reason of the call: Lung Scan Does the pt, need a callback & why? Yes, please Best Contact #: [phone] Details to clarify the request: Pt wants Noemi Dent to order a lung scan for her Live Transfer: No documented in this encounter Plan of Treatment Not on file documented as of this encounter Visit Diagnoses Not on filedocumented in this encounter Care Teams Fashion Design Professor Relationship Specialty Start Date End Date Noemi Dent NP [address] [place] [address] PCP - General Internal Medicine 07/02/22 documented as of this encounter
--- OUTSIDE RECORDS SUMMARY | 2024-08-07 11:28 | XMS_ITS | Encounter Summary ---
Author Organization [facility] Address [address] [place] [address] Care Team Providers Care Application Support Technician Name Role Phone Veronica Cifuentes Primary Care Provider Noemi Keith NP Primary Care Provider [phone] Reason for Visit * Reason Onset Date Comments Appointment Request 07/01/2022 Encounter Details Date Type Department Care Team (Late st Contact Info) Description 07/01/2022 Telephone [facility] Primary Care - [address] [place] [address] Veronica Cifuentes PA Appointment Request Social History Tobacco Use Types Packs/Day Years Used Date Smoking Tobacco: Former Cigarettes Q uit: 2009 Smokeless Tobacco: Never Alcohol Use Standard Drinks/Week Comments Yes 2 (1 standard drink = 0.6 oz pur e alcohol) PHQ-2 Answer Date Recorded Patient Health Questionnaire-2 Score 0 01/22/2022 Comments Unknown Sex and Gender Information Value Date Recorded Sex Assigned at Female 02/10/2024 12:19 PM EST Legal Sex Female 10:26 PM EDT Gender Identity Not on file Sexual Orientation Not on file COVID-19 Exposure Response Date Recorded In the last 10 days, have yo u been in contact with someone who was confirmed or suspected to have Coronavirus/COVID-19? No / Unsure 07/02/2022 10:53 AM EDT documented as of this encounter Miscellaneous Notes * Telephone Encounter - Gavin Rowland MA - 07/02/2022 8:58 AM EDT I talked to her yesterday and she stated she will do a follow up but we have to find something sooner than 08/05/2022. * Telephone Encounter - Stevie Ledesmarahan - 07/01/2022 1:00 PM EDT Who called - Pt Best contact number: [phone] Preferred date and time: emiliano Transfer Successful? No If appointment scheduled provide the date and time: none Reason for appointment: er f/up Details for clarify the request: Pt went to the ER late last night for high blood pressure of 220/140. Pt advised the tests came back good but she is having a constant headache and stiff neck. documented in this encounter Plan of Treatment Not on file documented as of this encounter Visit Diagnoses Not on filedocumented in this encounter Care Teams Application Support Technician Relationship Specialty Start Date End Date Veronica Cifuentes PA PCP - General Family Medicine 01/22/22 07/01/22 Noemi Dent NP [address] [place] [address] PCP - General Internal Medicine 07/02/22 documented as of this encounter
--- OUTSIDE RECORDS SUMMARY | 2024-08-07 11:28 | XMS_ITS | Referral Summary ---
Author Organization [facility] Address [address] [place] [address] Care Team Providers Care Production Generalist Name Role Phone Josh Collins MD Primary Care Provider [phone] Allergies Active Allergy Reactions Criticality Noted Date [...] Pneumococcal Polysaccharide PPV23 01/17/2020 ZOSTER Recombinant 02/18/2020,12/06/2019 Social History Tobacco Use Types Packs/Day Years Used Date Smoking Tobacco: Never Smokeless Tobacco: Never Personal Safety Answer Date Recorded Getting School Help Needed Not on file 06/01 Comments No Sex and Gender Information Value Date Recorded Sex Assigned at Not on file 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 Discovery Densitometer. Machine Cross-calibration and Precision studies [...] of Internal Medicine 114(11): 919-923 (1990) 2) Guardado, Lancet 341 : 72-75 (1992) 3) Black, Journal Bone and Mineral Research 7(6): 633-8 [...] by the International Society of Clinical Densitometry. [id number] Berenice Tay MD IMG DXA PROCEDURES Final Re sult from Last 3 Months or Most Recently Relevant to Health Maintenance Insurance MEDICARE [facility] MEDICARE [facility] Care Teams Production Generalist Relationship Specialty Start Date End Date Josh Collins MD [address] [place] [address] PCP - General Family Medicine 12/03/17
--- OUTSIDE RECORDS SUMMARY | 2024-08-07 11:28 | XMS_ITS | Clinical Summary ---
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 Gender Identity Not on file Sexual Orientation Not on file Plan of Treatment Health Maintenance Due Date Last Done Comments Colorectal Cancer Screening Colonoscopy (10 Years) 1950 Hepatitis C 1969 DTaP, Tdap and Td Vaccines ( 1 - Tdap) 1970 Mammogram Screening 1991 Pneumococcal Vaccine: 50+ Ye ars (1 of 1 - PCV) 2001 Zoster Vaccines (1 of 2) 2001 Dexa Scan (General) 2016 COVID-19 Vaccine ( - 2023-2 5 season) 2023 RSV Immunization or 60+ Years (1 - 1-dose 75+ series) 2026 Meningococcal B Vaccine Aged Out No l onger eligible based on patient's age to complete this topic Meningococcal Vaccine Aged Out No derik sagar eligible based on patient's age to complete this topic RSV Immunizations Under 20 Months Aged Out No longer eligible based on patient's age to complete this topic
--- OUTSIDE RECORDS SUMMARY | 2024-08-07 11:28 | XMS_ITS | Encounter Summary ---
Author Organization [facility] Address [address] [place] [address] Care Team Providers Care Mirror Department Supervisor Name Role Phone Veronica Cifuentes Primary Care Provider Noemi Keith NP Primary Care Provider Encounter Details Date Type Department Care Team (Late st Contact Info) Description 04/24/2022 Orders Only [facility] Cardiology Imaging [address] [facility], [address] [place] [address] Veronica Cifuentes PA Social History Tobacco Use Types Packs/Day Years [...] suspected to have Coronavirus/COVID-19? No / Unsure 04/04/2022 2:21 PM EST documented as of this encounter Miscellaneous Notes * Result Encounter Note - DEISI Lewis - 04/24/2022 1:37 PM EST Did pt completed CXR ? Can't find it. If you see report and normal call pt. If abnormal lt me know. documented in this encounter Plan of Treatment Not on file documented as of this encounter Procedures Procedure Name Priority Date/Time Associated Diagnosis Comments XR CHEST 2 VW Routine 04/17/2022 documented in this encounter Results * XR chest 2 vw (04/17/2022) Anatomical Region Laterality Modality Chest General Radiogra phy Veronica LIPSCOMB IMG XR PROCEDURES Final Re sult documented in this encounter Visit Diagnoses Not on filedocumented in this encounter Care Teams Mirror Department Supervisor Relationship Specialty Start Date End Date Veronica Cifuentes PA PCP - General Family Medicine 01/22/22 07/01/22 Noemi Dent NP [address] [facility] [place] [address] PCP - General Internal Medicine 07/02/22 documented as of this encounter
--- OUTSIDE RECORDS SUMMARY | 2024-08-07 11:28 | XMS_ITS | Encounter Summary ---
Author Organization [facility] Address [address] [place] [address] Care Team Providers Care Shuttle Preparation Supervisor Name Role Phone Noemi Dent WORKERS COMPENSATION ADMINISTRATOR Primary Care Provider Encounter Details Date Type Department Care Team (Late st Contact Info) Description 02/09/2024 Orders Only [facility] - [facility] Imaging [address] [place] [address] Richard Cobian RN Social History Tobacco Use Types Packs/Day Years [...] on file documented as of this encounter Plan of Treatment Not on file documented as of this encounter Visit Diagnoses Not on filedocumented in this encounter Care Teams Shuttle Preparation Supervisor Relationship Specialty Start Date End Date Noemi Dent NP [address] [place], [place] [id number] PCP - General Internal Medicine 07/02/22 documented as of this encounter
--- OUTSIDE RECORDS SUMMARY | 2024-08-07 11:28 | XMS_ITS | Encounter Summary ---
Author Organization [facility] Address [address] [place] [address] Care Team Providers Care Sales Support Associate Name Role Phone Veronica Cifuentes Primary Care Provider Noemi Keith NP Primary Care Provider Reason for Visit * Reason Comments Med Refill Encounter Details Date Type Department Care Team (Late st Contact Info) Description 05/21/2022 Refill [facility] Primary Care - [facility] [address] [facility] [address] [place] [address] Veronica Cifuentes PA Other insomnia Social History Tobacco Use Types Packs/Day Years [...] Telephone Encounter - Gavin Rowland MA - 05/27/2022 4:35 PM EST Pt has been notified that she needs to see didi to discuss about this new medication she wants to try. * Telephone Encounter - Talia Rahat - 05/27/2022 9:08 AM EST Who is calling: Aleksandra What is the reason for the call: wants to try new medication for sleep Does the pt. need a call back & why? Yes to discuss medication Best Contact Number: [phone] Details to clarify the request: wants to try quviviq for sleeplessness - saw ad on tv Pharmacy - [facility] [address] States previous medications have not worked - only getting three hours of sleep documented in this encounter Plan of Treatment Not on file documented as of this encounter Visit Diagnoses Diagnosis Other insomnia documented in this encounter Care Teams Sales Support Associate Relationship Specialty Start Date End Date Veronica Cifuentes PA PCP - General Family Medicine 01/22/22 07/01/22 Noemi Dent NP [address] [facility] [place] [address] PCP - General Internal Medicine 07/02/22 documented as of this encounter
== END 2024-08-06 09:20 | disposition home or self-care (01) ==
PROVIDERS: PCP Family Medicine; Visit Provider Otolaryngology
DX: H90.3 Sensorineural hearing loss, bilateral (principal)
CPT/HCPCS: 92557; 92567

== ENCOUNTER 2024-09-06 10:51 | Outpatient (CLI) | payer MEDICARE, SELFPAY ==
--- OUTSIDE RECORDS SUMMARY | 2024-09-06 11:26 | XMS_ITS | Encounter Summary ---
Author Organization [facility] Address [address] [place] [address] Care Team Providers Care Respiratory Director Name Role Phone Noemi Dent NP Primary Care Provider Reason for Visit * Reason Onset Date Comments Medical question 05/27/2024 Encounter Details Date Type Department Care Team (Late st Contact Info) Description 05/27/2024 Telephone [facility] Internal Medicine - [address] [address] Noemi Dent, NAT [address] [place] [address] Medical question Social History Tobacco Use [...] back & why? Yes Best Contact Number: [phone] Details to clarify the request: Patient had [...] on filedocumented in this encounter Care Teams Respiratory Director Relationship Specialty Start Date End Date Noemi Dent NP [address] [place] [address] PCP - General Internal Medicine 07/02/22 documented as of this encounter
--- OUTSIDE RECORDS SUMMARY | 2024-09-06 11:26 | XMS_ITS | Referral Summary ---
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 Machine Cross-calibration and Precision studies [...] by the International Society of Clinical Densitometry. [id number] Berenice Tay MD IM DXA PROCEDURES Final Re sult from Last 3 Months or Most Recently Relevant to Health Maintenance Insurance MEDICARE [facility] Member Subscriber Plan / Payer ( fective 2017-Present) Name:Aleksandra Ferrer Relation to Subscriber:Self Name:Aleksandra Ferrer Payer ID:[id number] Group ID:[id number] Type:COMMERCIAL Address: [facility] [address] [place] [id number] MEDICARE [facility] MEDICARE [facility] Care Teams Horse Race Timer Relationship Specialty Start Date End Date Josh Collins MD [address] [place] [address] PCP - General Family Medicine 12/03/17
--- OUTSIDE RECORDS SUMMARY | 2024-09-06 11:26 | XMS_ITS | Encounter Summary ---
Author Organization [facility] Syste m Address [address] [place] [address] Care Team Providers Care Counselor/Art Therapist Name Role Phone Veronica Cifuentes Primary Care Provider Noemi Keith NP Primary Care Provider [phone] Reason for Visit * Reason Onset Date Comments Appointment Request 07/01/2022 Encounter Details Date Type Department Care Team (Late st Contact Info) Description 07/01/2022 Telephone [facility] Primary Care - [address] [place] [address] Veronica Cifuentes PA Appointment Request [...] Who called - Pt Best contact number: [phone] Preferred date and time: emiliano Transfer Successful? [...] on filedocumented in this encounter Care Teams Counselor/Art Therapist Relationship Specialty Start Date End Date Veronica Cifuentes PA PCP - General Family Medicine 01/22/22 07/01/22 Noemi Dnet NP [address] [place] [address] PCP - General Internal Medicine 07/02/22 documented as of this encounter
--- OUTSIDE RECORDS SUMMARY | 2024-09-06 11:26 | XMS_ITS | Clinical Summary ---
Author Organization [facility] Syste m Address [address] [place] [address] Care Team Providers Care Commercial Driver'S License Driver Name Role Phone Noemi Dent NP Primary Care Provider [phone] Allergies Active Allergy Reactions Criticality Noted Date [...] eye 01/22/2022 Hip pain, chronic, right 01/22/2022 Immunizations Immunization Administration Dates Next Due TD [...] Cigarettes Q uit: 2010 Smokeless Tobacco: Never Tobacco Cessation:Counseling Given: Not [...] 8:23 AM EST Height 165.1 cm (5' 5) 05/28/2024 8:23 AM EST Body Mass Index [...] Colonoscopy 02/02/2025 02/02/2015 Colorectal Cancer Screening 02/02/2025 Zoster Vaccines Completed 01/24/2022, 02/05, 12/06/2019 Influenza [...] Breast Left Mammography 06/15/2019 8:44 AM EDT Provider Not In System IMG BI PROCEDURES Final R esult * Hm Colonoscopy (02/02/2015) HM Colonoscopy Colonoscopy Anatomical Region Laterality Modality Other Historical Provider HEALTH MAINTENANCE Final Result from Last 3 Months or Most Recently Relevant to Health Maintenance Insurance MEDICARE [facility] MEDICARE SUPPLEMENT Care Teams Commercial Driver'S License Driver Relationship Specialty Start Date End Date Noemi Dent NP [address] [place], [place] [id number] PCP - General Internal Medicine 07/02/22
--- OUTSIDE RECORDS SUMMARY | 2024-09-06 11:26 | XMS_ITS | Encounter Summary ---
Author Organization [facility] Syste m Address [address] [place] [address] Care Team Providers Care Foreign Exchange Student Coordinator Name Role Phone Noemi Dent CLIENT SERVICE PROFESSIONAL Primary Care Provider [phone] Encounter Details Date Type Department Care Team (Late st Contact Info) Description 02/09[facility] [address] [place] [address] Richard Cobian RN Social History Tobacco Use [...] on filedocumented in this encounter Care Teams Foreign Exchange Student Coordinator Relationship Specialty Start Date End Date Noemi Dent NP [address] [place], [place] [id number] PCP - General Internal Medicine 07/02/22 documented as of this encounter
--- OUTSIDE RECORDS SUMMARY | 2024-09-06 11:26 | XMS_ITS | Clinical Summary ---
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 Machine Cross-calibration and Precision studies [...] by the International Society of Clinical Densitometry. [id number] Berenice Tay MD IMG DXA PROCEDURES Final Re sult from Last 3 Months or Most Recently Relevant to Health Maintenance Insurance MEDICARE [facility] MEDICARE [facility] AARP Care Teams Business Integration Analyst Relationship Specialty Start Date End Date Josh Collins MD [address] [place] [address] PCP - General Family Medicine 12/03/17
--- OUTSIDE RECORDS SUMMARY | 2024-09-06 11:26 | XMS_ITS | Encounter Summary ---
Author Organization [facility] Address [address] [place] [address] Care Team Providers Care Supervisor Grading Name Role Phone Noemi Dent NP Primary Care Provider Reason for Visit * Reason Onset Date Comments Care Coordination 04/09/2024 Encounter Details Date Type Department Care Team (Late st Contact Info) Description 04/09/2024 Telephone [facility] Primary Care - [place] [address], [address] [place], [place] [id number] Noemi Dent NP [address] [facility] [place] [address] Care Coordination Social History Tobacco Use Types [...] & why? Yes, please Best Contact #: [phone] Details to clarify the request: Pt wants Noemi Dent to order a lung scan for her Live Transfer: No documented in this encounter Plan of Treatment Not on file documented as of this encounter Visit Diagnoses Not on filedocumented in this encounter Care Teams Supervisor Grading Relationship Specialty Start Date End Date Noemi Dent NP [address] [place] [address] PCP - General Internal Medicine 07/02/22 documented as of this encounter
--- OUTSIDE RECORDS SUMMARY | 2024-09-06 11:26 | XMS_ITS | Encounter Summary ---
Author Organization [facility] Healthcare Syste m Address [address] [place] [address] Care Team Providers Care Consulting Networking Engineer Name Role Phone Veronica Cifuentes Primary Care Provider Noemi Keith NP Primary Care Provider [phone] Reason for Visit * Reason Comments Med Refill Encounter Details Date Type Department Care Team (Late st Contact Info) Description 05/21/2022 Refill [facility] Primary Care - [facility] [address] [facility] [address] [place] [address] Veronica Cifuentes PA Other insomnia [...] Yes to discuss medication Best Contact Number: [phone] Details to clarify the request: wants to try quviviq for sleeplessness - saw ad on tv Pharmacy - [facility] [address] States previous medications have not worked - only getting three hours of sleep documented in this encounter Plan of Treatment Not on file documented as of this encounter Visit Diagnoses Diagnosis Other insomnia documented in this encounter Care Teams Consulting Networking Engineer Relationship Specialty Start Date End Date Veronica Cifuentes PA PCP - General Family Medicine 01/22/22 07/01/22 Noemi Dent NP [address] [facility] [place] [address] PCP - General Internal Medicine 07/02/22 documented as of this encounter
--- OUTSIDE RECORDS SUMMARY | 2024-09-06 11:26 | XMS_ITS | Encounter Summary ---
Author Organization [facility] m Address [address] [place] [address] Care Team Providers Care Lead Refiner Name Role Phone Veronica Cifuentes Primary Care Provider Noemi Keith NP Primary Care Provider Encounter Details Date Type Department Care Team (Late st Contact Info) Description 04/24/2022 Orders Only [facility] Cardiology Imaging [address] [facility], [address] [place] [address] Veronica Cifuentes PA Social History [...] on filedocumented in this encounter Care Teams Lead Refiner Relationship Specialty Start Date End Date Veronica Cifuentes PA PCP - General Family Medicine 01/22/22 07/01/22 Noemi Dent NP [address] [facility] [place] [address] PCP - General Internal Medicine 07/02/22 documented as of this encounter
[2024-09-06 14:25] LABS: Basophils Percent Auto 0.7 % (0.2-1.2); Eosinophils Absolute Auto 0.1 K/mm3 (0-0.3); Eosinophils Percent Auto 1.4 % (0-4.4); Hematocrit 38.7 % (37.0-47.0); Hemoglobin 12.2 g/dL (12.0-15.0); Immature Granulocyte Absolute 0.01 K/mm3 (0.00-0.031); Immature Granulocyte Percent A 0.2 % (0-0.5); Lymphocytes Absolute Auto 1.72 K/mm3 (0.9-3.2); Lymphocytes Percent Auto 29.5 % (18.3-44.2); Mean Corpuscular HGB Conc 31.5 g/dl (32-36); Mean Corpuscular Hemoglobin 30.5 pg (26-34); Mean Corpuscular Volume 96.8 fl (80-100); Mean Platelet Volume 9.5 fl (7.4-10.4); Monocytes Absolute Auto 0.5 K/mm3 (0.1-0.6); Monocytes Percent Auto 8.4 % (2.6-8.5); Neutrophils Absolute Auto 3.5 K/mm3 (1.3-6.7); Neutrophils Percent Auto 59.8 % (45.5-73.1); Platelet Count Result 356 k/mm3 (150-375); Red Cell Distribution Width 13.5 % (11.5-14.5); White Blood Count 5.8 K/mm3 (4.5-10.0)
[2024-09-06 14:51] LABS: Alanine Aminotransferase 24 U/L (6-35); Albumin Level 4.5 g/dL (3.5-5.1); Alkaline Phosphatase 73 U/L (38-126); Anion Gap 8 mmol/L (4-12); Aspartate Amino Transferase 50 U/L (14-36); Bilirubin,Total 0.5 mg/dL (0.2-1.3); Blood Urea Nitrogen 9 mg/dL (7-17); Calcium 9.6 mg/dL (8.4-10.2); Carbon Dioxide 30 mmol/L (22-30); Chloride 100 mmol/L (98-107); Estimated Glomerular Filt Rate > 60; Glucose 89 mg/dL (65-110); Potassium 3.8 mmol/L (3.4-5.0); Sodium 138 mmol/L (137-145)
[2024-09-06 15:19] LABS: Thyroid Stimulating Hormone 0.905 uIU/mL (0.465-4.680)
== END 2024-09-06 10:52 | disposition home or self-care (01) ==
LOC: ANHGOSHLAB 10:52
PROVIDERS: PCP Family Medicine; Visit Provider Nurse Practitioner Family
DX: R00.2 Palpitations (principal)
CPT/HCPCS: 36415; 80053; 84443; 85025

== ENCOUNTER 2024-09-23 13:45 | Outpatient (CLI) | payer MEDICARE, SELFPAY ==
--- OUTSIDE RECORDS SUMMARY | 2024-09-23 14:02 | XMS_ITS | Encounter Summary ---
Author Organization [facility] Healthcare Syste m Address [address] [place] [address] Care Team Providers Care Supervisor Briar Shop Name Role Phone Noemi Dent TRIMMING MACHINE SET UP OPERATOR Primary Care Provider Encounter Details Date Type Department Care Team (Late st Contact Info) Description 02/09/2024 [facility] [address] [place] [address] Richard Cobian RN Social History Tobacco Use [...] filedocumented in this encounter Care Teams Supervisor Briar Shop Relationship Specialty Start Date End Date Noemi Dent NP [address] [place], [place] [address] PCP - General Internal Medicine 07/02/22 documented as of this encounter
--- OUTSIDE RECORDS SUMMARY | 2024-09-23 14:02 | XMS_ITS | Encounter Summary ---
Author Organization [facility] Syste m Address [address] [place] [address] Care Team Providers Care Director Of Intelligence Name Role Phone Veronica Cifuentes Primary Care Provider Noemi Keith NP Primary Care Provider [phone] Encounter Details Date Type Department Care Team (Late st Contact Info) Description 04/24/2022 Orders Only [facility] Cardiology Imaging [address] [facility], [address] [place] [address] Veronica Cifuentes PA Social History [...] on filedocumented in this encounter Care Teams Director Of Intelligence Relationship Specialty Start Date End Date Veronica Cifuentes PA PCP - General Family Medicine 01/22/22 07/01/22 Noemi Dent NP [address] [facility] [place] [address] PCP - General Internal Medicine 07/02/22 documented as of this encounter
--- OUTSIDE RECORDS SUMMARY | 2024-09-23 14:02 | XMS_ITS | Encounter Summary ---
Author Organization [facility] Healthcare Syste m Address [address] [place] [address] Care Team Providers Care Android Ui Developer Name Role Phone Veronica Cifuentes Primary Care Provider Noemi Keith NP Primary Care Provider Reason for Visit * Reason Comments Med Refill Encounter Details Date Type Department Care Team (Late st Contact Info) Description 05/21/2022 Refill [facility] Primary Care - [facility] [address] [facility] [address] [place] [address] Veronica Cifuentes PA Other insomnia [...] Yes to discuss medication Best Contact Number: [phone] Details to clarify the request: wants to try quviviq for sleeplessness - saw ad on tv Pharmacy - [facility] [address] States previous medications have not worked - only getting three hours of sleep documented in this encounter Plan of Treatment Not on file documented as of this encounter Visit Diagnoses Diagnosis Other insomnia documented in this encounter Care Teams Android Ui Developer Relationship Specialty Start Date End Date Veronica Cifuentes PA PCP - General Family Medicine 01/22/22 07/01/22 Noemi Dent NP [address] [facility] [place] [address] PCP - General Internal Medicine 07/02/22 documented as of this encounter
--- OUTSIDE RECORDS SUMMARY | 2024-09-23 14:02 | XMS_ITS | Clinical Summary ---
Author Organization [facility] Syste m Address [address] [place] [address] Care Team Providers Care Openstack Developer Name Role Phone Noemi Dent NP Primary Care Provider Allergies Active Allergy Reactions Criticality Noted Date [...] Recently Relevant to Health Maintenance Insurance MEDICARE [facility] MEDICARE SUPPLEMENT Care Teams Openstack Developer Relationship Specialty Start Date End Date Noemi Dent NP [address] [place], [place] [id number] PCP - General Internal Medicine 07/02/22
--- OUTSIDE RECORDS SUMMARY | 2024-09-23 14:02 | XMS_ITS | Referral Summary ---
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 Machine Cross-calibration and Precision studies [...] by the International Society of Clinical Densitometry. [id number] Berenice Tay MD IM DXA PROCEDURES Final Re sult from Last 3 Months or Most Recently Relevant to Health Maintenance Insurance MEDICARE [facility] Member Subscriber Plan / Payer ( fective 2017-Present) Name:Aleksandra Ferrer Relation to Subscriber:Self Name:Aleksandra Ferrer Payer ID:[id number] Group ID:[id number] Type:COMMERCIAL Address: [facility] [id number] [place] [id number] MEDICARE [facility] MEDICARE [facility] Care Teams Passport Support Associate Relationship Specialty Start Date End Date Josh Collins MD [address] [place] [address] PCP - General Family Medicine 12/03/17
--- OUTSIDE RECORDS SUMMARY | 2024-09-23 14:02 | XMS_ITS | Encounter Summary ---
Author Organization [facility] Healthcare Syste m Address [address] [place] [address] Care Team Providers Care Supervisor Inspection Name Role Phone Noemi Dent NP Primary Care Provider [phone] Reason for Visit * Reason Onset Date Comments Medical question 05/27/2024 Encounter Details Date Type Department Care Team (Late st Contact Info) Description 05/27/2024 Telephone [facility] Internal Medicine - [address] [address] Noemi Dent, NAT [address] [place] [address] Medical question Social History Tobacco Use [...] back & why? Yes Best Contact Number: [phone] Details to clarify the request: Patient had [...] filedocumented in this encounter Care Teams Supervisor Inspection Relationship Specialty Start Date End Date Noemi Dent NP [address] [place] [address] PCP - General Internal Medicine 07/02/22 documented as of this encounter
--- OUTSIDE RECORDS SUMMARY | 2024-09-23 14:02 | XMS_ITS | Encounter Summary ---
Author Organization [facility] Address [address] [place] [address] Care Team Providers Care Stem Mounter Name Role Phone Noemi Dent NP Primary Care Provider Reason for Visit * Reason Onset Date Comments Care Coordination 04/09/2024 Encounter Details Date Type Department Care Team (Late st Contact Info) Description 04/09/2024 Telephone [facility] Primary Care - [place] [address], [address] [place], [place] [id number] Noemi Dent NP [address] [facility] [place] [address] Care Coordination Social History Tobacco Use Types [...] & why? Yes, please Best Contact #: [phone] Details to clarify the request: Pt wants Noemi Dent to order a lung scan for her Live Transfer: No documented in this encounter Plan of Treatment Not on file documented as of this encounter Visit Diagnoses Not on filedocumented in this encounter Care Teams Stem Mounter Relationship Specialty Start Date End Date Noemi Dent NP [address] [place] [address] PCP - General Internal Medicine 07/02/22 documented as of this encounter
--- OUTSIDE RECORDS SUMMARY | 2024-09-23 14:02 | XMS_ITS | Encounter Summary ---
Author Organization [facility] m Address [address] [place] [address] Care Team Providers Care Outer Diameter Technician Name Role Phone Veronica Cifuentes Primary Care Provider Noemi Keith NP Primary Care Provider [phone] Reason for Visit * Reason Onset Date Comments Appointment Request 07/01/2022 Encounter Details Date Type Department Care Team (Late st Contact Info) Description 07/01/2022 Telephone [facility] Primary Care - [address] [place] [address] Veronica Cifuentes PA Appointment Request [...] Who called - Pt Best contact number: [phone] Preferred date and time: emiliano Transfer Successful? [...] on filedocumented in this encounter Care Teams Outer Diameter Technician Relationship Specialty Start Date End Date Veronica Cifuentes PA PCP - General Family Medicine 01/22/22 07/01/22 Noemi Dent NP [address] [place] [address] PCP - General Internal Medicine 07/02/22 documented as of this encounter
--- OUTSIDE RECORDS SUMMARY | 2024-09-23 14:02 | XMS_ITS | Clinical Summary ---
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 Machine Cross-calibration and Precision studies [...] by the International Society of Clinical Densitometry. [id number] Berenice Tay MD IMG DXA PROCEDURES Final Re sult from Last 3 Months or Most Recently Relevant to Health Maintenance Insurance MEDICARE [facility] MEDICARE [facility] AARP Care Teams Analytics Consultant Relationship Specialty Start Date End Date Josh Collins MD [address] [place] [address] PCP - General Family Medicine 12/03/17
--- OUTSIDE RECORDS SUMMARY | 2024-09-23 14:02 | XMS_ITS | Clinical Summary ---
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
--- NOTE | 2024-10-13 11:35 | WPDHOLTEREM ---
Holter/Event Monitor Holter/Event Monitor Date of procedure: 09/23/24 Holter/Event Procedure: 3-7 Day Holter Monitor Indications: Palpitations Conclusion: 1. 7 days holter monitor on 09/23/24. 2. Predominant rhythm is sinus rhythm. HR range 46-176 bpm; average HR 72 bpm. HR at 46 bpm was on 09/27/24 at 8:00 am. 3. There are rare premature supraventricular complexes, rare supraventricular couplets, and rare supraventricular triplets. There are 4 episodes of supraventricular tachycardia with fastest at 176 bpm and longest lasting 12 beats. 4. There are rare premature ventricular complexes. No ventricular tachycardia. 5. No significant pauses greater than 3 seconds. 6. No symptoms available for correlation.
== END 2024-09-23 13:46 | disposition home or self-care (01) ==
LOC: ANHCARD 13:47
PROVIDERS: PCP Nurse Practitioner Family; Visit Provider Nurse Practitioner Family
DX: I10 Essential (primary) hypertension (principal); R00.2 Palpitations
CPT/HCPCS: 93242

== ENCOUNTER 2024-10-13 15:10 | Outpatient (CLI) | payer MEDICARE, SELFPAY ==
--- NOTE | ~2024-10-13 | MR_ITS ---
MRI of the brain Clinical History: Headache Technique: Axial and sagittal T1-weighted images were acquired. These were followed by axial T2-weigh juan jose, diffusion weighted, gradient, and FLAIR images. COMPARISON: 10/11/2019 Findings: No abnormal signal seen in the brain parenchyma. No acute infarct, intracranial hemorrhage or mass lesion. Ventricles and subarachnoid spaces are unremarkable. Orbits are unremarkable. Paranasal sinuses and m astoid air cells are clear. Major intracranial flow voids are intact. Sagittal midline structures are intact. IMPRESSION: Unremarkable exam. Reviewed, dictated and finalized at location M. IMPRESSION: Unremarkable exam.
== END 2024-10-13 15:11 | disposition home or self-care (01) ==
LOC: GOSHIMG 15:10
PROVIDERS: PCP Family Medicine; Visit Provider Nurse Practitioner Family
DX: R51.9 Headache, unspecified (principal)
CPT/HCPCS: 70551

== ENCOUNTER 2025-01-26 10:24 | Outpatient (CLI) | payer MEDICARE, SELFPAY ==
--- NOTE | ~2025-01-26 | CT_ITS ---
Exam: CT abdomen and pelvis with contrast Clinical History: [Follow-up renal cell carcinoma ] Comparison: [ CT abdomen with contrast 06/10/2024; CT abdomen pelvis 12/26/2023] Technique: Multiple axial CT images of the abdomen and pelvis were obtained with IV contrast. Sagittal and coronal reformatted images were obtained. FINDINGS: Lung bases: [Small opacities in the lower lungs. ] Liver: [ No mass.] [ No intrahepatic biliary duct dilatation.] Gallbladder: [ No wall thickening or stones.] Common bile duct: [ Normal caliber.] [ No stones.] Spleen: [ Within normal limits.] Pancreas: [ No mass. No pancreatic fluid collection.] Adrenals: Stable adrenal glands. Kidneys: No hydronephrosis. Interval decrease in the size of the soft tissue lesion in the lower pole of the left kidney which currently measures 2.0 x 1.5 cm, previously measured 2.6 x 2.1 cm Lymph nodes: [ No adenopathy in the abdomen or pelvis.] Stomach, small bowel and colon: [ No bowel wall thickening or obstruction.] Peritoneum cavity: [ No mesenteric fat stranding or fluid.] Bladder: [ Unremarkable.] Osseous structures: [ No acute fracture lesion.] [ Multilevel degenerative change in the visualized spine.] Abdominal aorta: [ No aneurysm.] Additional findings: [ None of significance.] IMPRESSION: 1. Interval decrease in the size of the soft tissue lesion in the lower pole of the left kidney which currently measures 2.0 x 1.5 cm, previously measured 2.6 x 2.1 cm. Correlate clinically. Reviewed, dictated and finalized at location Q.
[2025-01-26 10:40] LABS: Estimated Glomerular Filt Rate > 60
== END 2025-01-26 10:25 | disposition home or self-care (01) ==
LOC: MICIMG 10:25
PROVIDERS: PCP Family Medicine; Visit Provider Family Medicine
DX: C64.9 Malignant neoplasm of unspecified kidney, except renal pelvis (principal)
CPT/HCPCS: 74178; Q9967

== ENCOUNTER 2025-02-24 10:47 | Outpatient (CLI) | payer MEDICARE, SELFPAY ==
--- NOTE | ~2025-02-24 | XR_ITS ---
XR lumbar spine 2-3V Indication: Spinal stenosis, pain x 2 months Comparison: None Findings: Grade 1 retrolisthesis L3 on L4, no fracture. Moderate loss of disc height at L4-5. Soft tissues unremarkable Impression: No acute abnormality. Reviewed, dictated and finalized at location P. AL WORKER DELINQUENCY PREVENTION Impression: No acute abnormality.
== END 2025-02-24 10:48 | disposition home or self-care (01) ==
PROVIDERS: PCP Family Medicine; Visit Provider Nurse Practitioner Family
DX: M48.061 Spinal stenosis, lumbar region without neurogenic claudication (principal); M25.551 Pain in right hip
CPT/HCPCS: 72100